=== PATIENT | male | born 1950 | race Caucasian/White ===

== ENCOUNTER 2022-02-11 10:38 | Outpatient (REF) | payer MEDICARE, SELFPAY ==
[2022-02-11 11:16] LABS: Hematocrit 47.6 % (42.0-52.0); Hemoglobin 15.5 g/dl (14.0-18.0); Mean Corpuscular HGB Conc 32.6 g/dl (31.0-36.0); Mean Corpuscular Hemoglobin 28.8 pg (27.0-33.0); Mean Corpuscular Volume 88.3 fL (80.0-98.0); Mean Platelet Volume 10.9 fL (9.4-12.4); Platelet Count 247 X10*3/uL (160-400); Red Blood Count 5.39 X10*6/uL (4.60-5.80); Red Cell Distribution Width 12.5 % (11.0-16.0); White Blood Count 6.2 X10*3/uL (4.8-10.8)
[2022-02-11 11:51] LABS: Appearance Urine CLEAR; Color Urine YELLOW; Glucose Urine UA NEG (NEG); Leukocyte Esterase Urine NEG (NEG); Nitrite Urine NEG (NEG); Specific Gravity - Urine 1.015 (1.005-1.025); Urine Blood NEG (NEG); Urine Ketones NEG (NEG); Urine Protein NEG (NEG-TRACE)
[2022-02-11 12:13] LABS: Thyroid Stimulating Hormone 0.88 uIU/mL (0.32-4.0)
[2022-02-11 12:22] LABS: Alanine Aminotransferase 21 U/L (0-40); Albumin Level 4.4 g/dL (3.5-5.0); Alkaline Phosphatase 64 U/L (39-117); Anion Gap 15 (12-20); Aspartate Amino Transferase 20 U/L (5-37); Bilirubin Direct 0.3 mg/dL (0.0-0.5); Blood Urea Nitrogen 20 mg/dL (9-16); C Reactive Protein 0.15 mg/dL (< or = 0.50); Carbon Dioxide 26 mmol/L (22-29); Chloride 103 mmol/L (96-108); Cholesterol 216 mg/dL; Estimated Glomerular Filt Rate > 60; Glucose Random 96 mg/dL (60-115); HDL Cholesterol 61 mg/dL; LDL Cholesterol Calculated 143 mg/dl; Potassium 4.3 mmol/L (3.3-5.1); Sodium 140 mmol/L (135-145); Total Protein 7.6 g/dL (6.5-8.0); Triglycerides 62 mg/dL
== END 2022-02-11 10:39 | disposition home or self-care (01) ==
LOC: HO.LAB 10:38
PROVIDERS: PCP Internal Medicine; Visit Provider Internal Medicine
DX: I10 Essential (primary) hypertension (principal)
CPT/HCPCS: 36415; 80048; 80061; 80076; 81003; 84443; 85027; 86140

== ENCOUNTER → 2022-03-11 09:12 | Outpatient (REF) | payer MEDICARE, SELFPAY ==
--- NOTE | 2022-03-11 09:18 | CA_ITS ---
Acquisition Time: 2022-03-11 09:26:07 Total Exercise Time: 00:07:16 Test Indications: Chest Pain Medications: LOSARTAN Protocol: NICKIE Max HR: 153 BPM 102% of Pred: 150 BPM Max BP: 180/090 mmHG Max Work Load: 8.9 METS Exercise stress using Nickie protocol, total of 7 min 16 sec. Pt tolerated well, Mild shortness of breath without chest pain. METS 8.9, MAPHR Up to 102%. No ischemic changes seen during exercise or in recovery period. Hypertensive response to exercise. Test reviewed with Dr. Newton. Referred By: Rose Arnett Overread By: Amanda Ledezma NP
== END ==
LOC: HO.CARD 09:12
PROVIDERS: PCP Nurse Practitioner Family; Visit Provider Nurse Practitioner Family
DX: R07.9 Chest pain, unspecified (principal); I10 Essential (primary) hypertension
CPT/HCPCS: 93017

== ENCOUNTER 2023-03-15 14:19 | Outpatient (REF) | payer MEDICARE, SELFPAY ==
[2023-03-15 15:39] LABS: Hematocrit 46.9 % (42.0-52.0); Hemoglobin 15.5 g/dl (14.0-18.0); Mean Corpuscular Hemoglobin 29.1 pg (27.0-33.0); Mean Corpuscular Volume 88.2 fL (80.0-98.0); Mean Platelet Volume 11.2 fL (9.4-12.4); Platelet Count 253 X10*3/uL (160-400); Red Blood Count 5.32 X10*6/uL (4.60-5.80)
[2023-03-15 16:25] LABS: Alanine Aminotransferase 19 U/L (0-40); Albumin Level 4.3 g/dL (3.5-5.0); Alkaline Phosphatase 72 U/L (39-117); Anion Gap 13 (12-20); Aspartate Amino Transferase 22 U/L (5-37); Bilirubin Direct 0.2 mg/dL (0.0-0.5); Bilirubin Total 0.7 mg/dL (0.0-1.0); Blood Urea Nitrogen 22 mg/dL (9-16); Calcium 9.4 mg/dL (8.4-10.2); Carbon Dioxide 27 mmol/L (22-29); Chloride 104 mmol/L (96-108); Estimated Glomerular Filt Rate > 60; Glucose Random 103 mg/dL (60-115); Potassium 4.7 mmol/L (3.3-5.1); Sodium 139 mmol/L (135-145); Total Protein 7.1 g/dL (6.5-8.0)
[2023-03-15 16:40] LABS: Prostate Specific Antigen Scr 5.77 ng/mL (<0.05-4.0)
[2023-03-15 19:25] LABS: Creatinine Urine 66.86 mg/dL; Microalbumin Urine < 5.0 mg/L
== END 2023-03-15 14:20 | disposition home or self-care (01) ==
LOC: HO.LAB 14:19
PROVIDERS: PCP Physician Assistant; Visit Provider Physician Assistant
DX: Z12.11 Encounter for screening for malignant neoplasm of colon (principal); Z12.5 Encounter for screening for malignant neoplasm of prostate; I10 Essential (primary) hypertension
CPT/HCPCS: 36415; 80048; 80076; 82043; 84153; 85027

== ENCOUNTER 2023-09-27 10:46 | Outpatient (AMB) | payer MEDICARE, SELFPAY ==
[2023-09-27 10:49] VITALS: BP 122/78; PULSE 71; O2SAT 97; BMI 25.5
--- NOTE | 2023-09-27 10:49 | MHC.PC.OV ---
Vital Signs 09/27/23 10:49 Height 5 ft 7 in Weight 163 lb BMI 25.5 BP 122/78 Blood Pressure Location Lt brachial Position Sitting Pulse 71 Pulse Source Pulse Oximeter Pulse Oximetry (%) 97 Oxygen Delivery Method Room Air Intake Visit Reasons: Annual Exam Intake Note: Patient is here today for a physical. 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 Accompanied by: Self / Same As Patient Allergies amoxicillin [AMOXICILLIN] Allergy (Severe, Verified 09/27/23 11:21) RASH zoster vaccine live [SHINGLES VACCINE] Allergy (Severe, Verified 09/27/23 11:21) SWELLING AND PAIN metoprolol Adverse Reaction (Severe, Verified 09/27/23 11:21) Nausea PEG 3350-KCl-Na Bicarb-NaCl Allergy (Unknown, Uncoded 09/27/23 11:08) Unknown pollen Allergy (Unknown, Uncoded 09/27/23 11:08) Itchy Eyes Medication List - Last Reconciled 09/27/23 by Ramiro Ellis PA-C losartan 50 mg PO DAILY Tobacco use date assessed: 03/21/23 Fall risk assessment: No Falls in past year Last assessed Fall Risk: 09/27/23 Dental Screening Dental Screen Date: 09/27/23 Did you have a dental visit in the last 12 months?: Yes Did you have a dental problem in the last 6 months where you did not have access to dental care?: No Was dental information given to patient?: Patient has dentist HPI Annual Exam HPI Details Patient is a 73 year male here today for routine annual physical. Patient has a past medical history significant for essential hypertension and elevated PSA. Concern--> continues to have elevated PSA. Does have a brother with prostate cancer. Does report some nocturia and weak urinary stream at times. Not interested in starting medication at this time or seeing a urologist PLAN: Will recheck PSA in 6 months and continues to be elevated will consider urology evaluation .. Hypertension: blood pressure stable today in office. Patient continues on losartan with good effect on his blood pressure. Vaccines: Up-to-date with COVID vaccine, pneumonia vaccine, shingles vaccine, needs flu vaccine Colon cancer screening: Cologuard negative in November 2022, repeat 3 years Laboratory Tests 03/15/23 03/15/23 03/15/23 14:31 14:31 15:40 RBC 5.32 Hgb 15.5 Creatinine 1.05 PSA Screen 5.77 H Urine Microalbumin < 5.0 PFSH Medical History Essential hypertension Surgical History History of knee surgery History of hemorrhoidectomy Family History Father Prostate cancer Social History (Updated 09/27/23 @ 11:27 by Ramiro Ellis PA-C) Housing: House Alcohol intake: current Alcohol intake frequency: holidays/special occasions only Patient Tobacco Use Status: Never used Tobacco e-Cigarette/Vaping Use: Never Used Second Hand Smoke Exposure: No service: No Current occupational status: retired Cognitive needs: No Hearing needs: No Vision needs: Yes (Glasses) Questionnaire Thrive Questionnaire Date Thrive assessed: 03/21/23 AMBERLY-7 AMB Questionnaire AMBERLY-7 Date AMBERLY - 7 assessed: 03/21/23 Source: Developed by Drs. Bryce Burton, Lynette Dietz, Darshan Porter and colleagues, with an educational sandee from [employer]. Review of Systems Const Denies body aches, Denies chills, Denies excessive sweating, Denies fatigue, Denies fever(s) and Denies headache(s) Eyes Denies blurry vision ENT Denies dysphagia, Denies vertigo, Denies dizziness, Denies headache(s), Denies hearing loss and Denies tinnitus Card Denies chest pain, Denies chest pain with activity, Denies syncope, Denies irregular heart rhythm and Denies dyspnea Resp Denies chest congestion, Denies cough, Denies hemoptysis, Denies dyspnea and Denies wheezing GI Denies abdominal pain, Denies melena, Denies hematochezia, Denies coffee ground emesis, Denies dysphagia, Denies diarrhea, Denies nausea and Denies vomiting Denies difficulty urinating, Denies dysuria, Denies urinary frequency, Denies urinary hesitancy and Denies urinary urgency Musc Denies arthralgias, Denies limited range of motion, Denies muscle cramps and Denies muscle weakness Skin/Breast Denies rash and Denies skin ulcer Neuro Denies Abnormal speech present, Denies confusion, Denies vertigo, Denies dizziness, Denies syncope, Denies headache(s), Denies memory loss and Denies seizure-like activity Psych Denies anxiety, Denies confusion, Denies depression, Denies memory loss, Denies panic attacks and Denies paranoia Endo Denies excessive sweating, Denies fatigue, Denies flushing, Denies polydipsia and Denies polyuria Aller/Immun Denies wheezing Physical exam (Primary Care) Vital Signs: Last Vital Signs Pulse 71 09/27/23 10:49 BP 122/78 09/27/23 10:49 Pulse Ox 97 09/27/23 10:49 Oxygen Delivery Method Room Air 09/27/23 10:49 BMI result Body Mass Index 25.5 Tobacco/Smoking Status: Tobacco use Status Tobacco use date assessed 03/21/23 09/27/23 10:51 Patient Tobacco Use Status Never used Tobacco 09/27/23 11:27 e-Cigarette/Vaping Use Never Used 09/27/23 11:27 Thrive Assessment: Date of Thrive Assessment Date Thrive assessed 03/21/23 09/27/23 10:51 Const General: cooperative, comfortable, no acute distress, alert and awake; No confusion Orientation/consciousness: oriented to person, oriented to place, patient oriented x3 and No confusion HENMT Head: Yes normocephalic Ears: external ears normal and TM's normal bilaterally Face and sinus: No sinus tenderness Mouth: Normal oral and palatal mucosa present and tongue normal Teeth and gingiva: dentition normal and gingiva normal Throat: Yes posterior oropharynx normal, Yes tonsils normal and Yes uvula midline Eyes Conjunctivae: conjunctivae normal Sclerae: sclerae normal Pupils: Equal, round and reactive pupils present EOM: EOMs intact bilaterally Direct Ophthalmoscopy: No no photophobia Neck Neck: Yes no lymphadenopathy, No tender and Yes no JVD Thyroid: Thyroid normal Carotids: no bruits Chest Chest palpation & inspection: no tenderness Resp Effort & Inspection: normal respiratory effort, no audible wheezes, not labored and no stridor Auscultation: no crackles, no rales, no rhonchi and no wheezes Cardio Jugular venous distension: no JVD Rate: regular rate, not bradycardic and not tachycardic Rhythm: regular rhythm Bruits: no carotid bruits Peripheral pulses: Peripheral pulses 2+ throughout GI Inspection: Yes normal to inspection, No abdominal wall ecchymosis and No visible herniation Palpation (GI): Soft to palpation, nontender, no guarding, not rigid and No hepatosplenomegaly present Auscultation: normoactive bowel sounds General: Yes no CVA tenderness Back/Spine/Pelvis Back: no CVA tenderness and No back tenderness Cervical Spine: cervical ROM normal Thoracic/Lumbar Spine: thoracic and lumbar spine normal to inspection, straight leg raise negative bilaterally, No thoraco-lumbar ROM limited and No lumbar spinal tenderness Skin Lesions: no lesions Rashes: no rashes Wounds: no wounds Neuro General: oriented to person, oriented to place, patient oriented x3, CN's II-XI intact bilaterally and No confusion Cranial nerves: Yes Equal, round and reactive pupils present and Yes Normal accommodation reflex present Cognition (Neuro): normal cognition Speech: No Abnormal speech present Gait exam (Neuro): Normal gait present Motor exam (neuro): 5/5 motor strength present throughout Extrem Right upper extremity: full ROM; no cyanosis Left upper extremity: full ROM; no cyanosis Right lower extremity: no edema Left lower extremity: no edema Psych Appearance: grossly normal Mental Status: mental status grossly normal Affect: normal affect Attitude: cooperative Thought process: Normal thought process present Assessment and Plan Assessment & Plan (1) Annual physical exam: Code(s): Z00.00 - Encounter for general adult medical examination without abnormal findings (2) Essential hypertension: Code(s): I10 - Essential (primary) hypertension Plan: Blood pressure acceptable today in office, will continue his current dose of losartan as his blood pressure has been stable. Has been more physically active as of late and has lost a few lb. Goal blood pressure be below 140/90 (3) Elevated PSA: Code(s): R97.20 - Elevated prostate specific antigen [PSA] Plan: Patient's most recent PSA of 5.7. He does report some weak urinary stream though no nocturia. He does report a father with prostate cancer whom in his 80s. At this time will continue surveillance and if PSA remains elevated will consider urology evaluation Orders: Orders Comprehensive [place]. Panel Fast 09/27/23 I10 - Essential (primary) hypertension Prostate Specific Antigen Scr 09/27/23 R97.20 - Elevated prostate specific antigen [PSA], Z12.5 - Encounter for screening for malignant neoplasm of prostate Complete Blood Count no Diff 09/27/23 I10 - Essential (primary) hypertension Lipid Panel 09/27/23 I10 - Essential (primary) hypertension Coding Level of Care Code Est Pt Prev Care >65y(20668) Diagnoses Annual physical exam Z00.00 Essential hypertension I10 Elevated PSA R97.20
== END 2023-09-27 11:51 | disposition home or self-care (01) ==
PROVIDERS: Visit Provider Physician Assistant
DX: Z00.00 Encounter for general adult medical examination without abnormal findings (principal); I10 Essential (primary) hypertension; R97.20 Elevated prostate specific antigen [PSA]
CPT/HCPCS: 99214; 99397

== ENCOUNTER 2024-03-20 09:16 | Outpatient (REF) | payer MEDICARE, SELFPAY ==
[2024-03-20 09:37] LABS: Hematocrit 43.8 % (42.0-52.0); Hemoglobin 14.9 g/dl (14.0-18.0); Mean Corpuscular Hemoglobin 30.3 pg (27.0-33.0); Mean Corpuscular Volume 89.2 fL (80.0-98.0); Mean Platelet Volume 10.8 fL (9.4-12.4); Platelet Count 217 X10*3/uL (160-400); Red Blood Count 4.91 X10*6/uL (4.60-5.80); Red Cell Distribution Width 12.7 % (11.0-16.0); White Blood Count 6.5 X10*3/uL (4.8-10.8)
[2024-03-20 10:10] LABS: Alanine Aminotransferase 16 U/L (0-40); Albumin Level 4.3 g/dL (3.5-5.0); Alkaline Phosphatase 61 U/L (39-117); Anion Gap 13 (12-20); Aspartate Amino Transferase 19 U/L (5-37); Bilirubin Total 0.7 mg/dL (0.0-1.0); Blood Urea Nitrogen 28 mg/dL (9-16); Calcium 9.6 mg/dL (8.4-10.2); Carbon Dioxide 27 mmol/L (22-29); Chloride 105 mmol/L (96-108); Cholesterol 192 mg/dL (<200); Estimated Glomerular Filt Rate > 60; Glucose Fasting 92 mg/dL (60-99); HDL Cholesterol 63 mg/dL (>40); LDL Cholesterol Calculated 120 mg/dL (<100); Potassium 4.7 mmol/L (3.3-5.1); Sodium 140 mmol/L (135-145); Total Protein 7.6 g/dL (6.5-8.0); Triglycerides 48 mg/dL (<150)
== END 2024-03-20 09:17 | disposition home or self-care (01) ==
LOC: HO.LAB 09:16
PROVIDERS: PCP Physician Assistant; Visit Provider Physician Assistant
DX: Z12.5 Encounter for screening for malignant neoplasm of prostate (principal); I10 Essential (primary) hypertension; R97.20 Elevated prostate specific antigen [PSA]
CPT/HCPCS: 36415; 80053; 80061; 84153; 85027

== ENCOUNTER 2024-03-27 14:00 | Outpatient (AMB) | payer MEDICARE, SELFPAY ==
[2024-03-27 14:05] VITALS: BP 132/84; PULSE 70; O2SAT 97; BMI 25.3
--- NOTE | 2024-03-27 14:05 | A.OFFPC_ITS ---
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 Accompanied by: Self / Same As Patient Allergies amoxicillin [AMOXICILLIN] Allergy (Severe, Verified 03/27/24 14:29) RASH zoster vaccine live [SHINGLES VACCINE] Allergy (Severe, Verified 03/27/24 14:29) SWELLING AND PAIN metoprolol Adverse Reaction (Severe, Verified 03/27/24 14:29) Nausea PEG 3350-KCl-Na Bicarb-NaCl Allergy (Unknown, Uncoded 03/27/24 14:08) Unknown pollen Allergy (Unknown, Uncoded 03/27/24 14:08) Itchy Eyes Medication List - Last Reconciled 03/27/24 by Ramiro Ellis PA-C losartan 50 mg PO DAILY Tobacco use date assessed: 03/27/24 Fall risk assessment: No Falls in past year Last assessed Fall Risk: 03/27/24 Dental Screening Dental Screen Date: 03/27/24 Did you have a dental visit in the last 12 months?: Yes Did you have a dental problem in the last 6 months where you did not have access to dental care?: No Was dental information given to patient?: Patient has dentist HPI 6 Month Follow Up HPI Details Patient is a 74 year male here today for routine annual physical. Patient has a past medical history significant for essential hypertension and elevated PSA. Did have an urgent care visit to where he hit his head on a dresser. He was asymptomatic and no imaging done. He unfortunately contracted COVID while in the ER and has recovered well from COVID. Concern--> continues to have elevated PSA. Does have a brother with prostate cancer. Does report some nocturia and weak urinary stream at times. He is now interested in urology referral and starting finasteride and tamsulosin for his urinary symptoms. .. Hypertension: blood pressure stable today in office. Patient continues on losartan with good effect on his blood pressure. [facility] Medical History Essential hypertension Surgical History History of knee surgery History of hemorrhoidectomy Family History Father Prostate cancer Social History Housing: House Alcohol intake: current Alcohol intake frequency: holidays/special occasions o nly Patient Tobacco Use Status: Never used Tobacco e-Cigarette/Vaping Use: Never Used Second Hand Smoke Exposure: No service: No Current occupational status: retired Cognitive needs: No Hearing needs: No Vision needs: Yes (Glasses) Questionnaire PHQ-9 Over the last 2 weeks, how often have you been bothered by any of the following problems? 1. Little interest or pleasure in doing things: not at all 2. Feeling down, depressed, or hopeless: not at all 3. Trouble falling or staying asleep, or sleeping too much: not at all 4. Feeling tired or having little energy: not at all 5. Poor appetite or overeating: not at all 6. Feeling bad about yourself - or that you are a failure or have let yourself or your family down: not at all 7. Trouble concentrating on things, such as reading the newspaper or watching television: not at all 8. Moving or speaking so slowly that other people could have noticed. Or the opposite - being so fidgety or restless that you have been moving around a lot more than usual: not at all 9. Thoughts that you would be better off or of hurting yourself in some way: not at all Total score: 0 Depression Screening Interpretation: Negative Depression Screening Done: Yes 97811 - PHQ-9 Billing: Yes Source: Developed by Drs. Bryce Burton, Lynette Dietz, Darshan Porter and colleagues, with an educational sandee from [employer] Thrive Questionnaire Date Thrive assessed: 03/27/24 I am a: Patient What is your living situation today?: I have a steady place to live Within the past 12 months, did the food you bought not last and you didn't have the money to get more?: Never true Within the past 12 months, did you worry whether your food would run out before you got money to buy more?: Never true Do you have trouble paying for medicines?: No Do you have trouble getting transportation to medical appointments?: No Do you have trouble paying your heating and electricity bill?: No Do you have trouble taking care of your child, family member or friend?: No Do you have trouble with day-to-day activities such as bathing, preparing meals, shopping, managing finances, etc.?: No Are you currently unemployed and looking for a job?: No Are you interested in more education?: No Please select the resources that you would like help with: None Currently or been in a relationship where the following occur: no concerns reported THRIVE Score: 0 AUDIT C Alcohol Use Questionnaire (AUDIT-C) 1. How often do you have a drink containing alcohol?: Monthly or less 2. How many drinks containing alcohol do you have on a typical day when you are drinking?: 1 or 2 3. How often do you have six or more drinks on one occasion?: Never Total Score: 1 AMBERLY-7 AMB Questionnaire AMBERLY-7 Date AMBERLY - 7 assessed: 03/27/24 Feeling nervous, anxious, or on edge: 0 = Not at all Not being able to stop or control worryin = Not at all Worrying too much about different things: 0 = Not at all Trouble relaxin = Not at all Being so restless that it is hard to sit still: 0 = Not at all Becoming easily annoyed or irritable: 0 = Not at all Feeling afraid as if something awful might happen: 0 = Not at all Total AMBERLY-7 score (0-4 normal; 5-9 mild; 10-14 moderate; 15-21 severe): 0 Source: Developed by Drs. Bryce Burton, Lynette Dietz, Darshan Porter and colleagues, with an educational sandee from [employer] AMBERLY-7 Assessment Billing AMBERLY-7 Assessment Tool: AMBERLY-7 Assessment [id number] Review of Systems Const Denies headache(s) Eyes Denies loss of vision ENT Denies vertigo, Denies dizziness, Denies headache(s) and Denies sore throat Card Denies chest pain, Denies leg edema and Denies lightheadedness Resp Denies cough, Denies hemoptysis and Denies wheezing GI Denies abdominal pain, Denies melena, Denies constipation, Denies diarrhea and Denies vomiting Denies dysuria, Reports urinary frequency and Denies urinary urgency Musc Denies arthralgias, Denies joint swelling, Denies numbness and Denies tingling Neuro Denies Abnormal speech present, Denies behavioral changes, Denies vertigo, Denies dizziness, Denies headache(s), Denies loss of vision, Denies memory loss, Denies numbness and Denies tingling Psych Denies anxiety, Denies behavioral changes, Denies depression, Denies memory loss and Denies panic attacks Vincenzo/Lymph Denies easy bleeding and Denies easy bruising Aller/Immun Denies wheezing Physical exam (Primary Care) Vital Signs: Last Vital Signs Pulse 70 03/27/24 14:05 BP 132/84 03/27/24 14:05 Pulse Ox 97 03/27/24 14:05 Oxygen Delivery Method Room Air 03/27/24 14:05 BMI result Body Mass Index 25.3 Tobacco/Smoking Status: Tobacco use Status Tobacco use date assessed 03/27/24 03/27/24 14:10 Patient Tobacco Use Status Never used Tobacco 03/27/24 14:10 e-Cigarette/Vaping Use Never Used 03/27/24 14:10 PHQ-9: PHQ-9 Score PHQ-9: Total score 0 03/27/24 14:10 Depression Screening Interpretation: Negative Thrive Assessment: Date of Thrive Assessment Date Thrive assessed 03/27/24 03/27/24 14:10 Currently or been in a relationship where the following occur: no concerns reported Const General: healthy appearing, no acute distress, alert and awake Nutritional Appearance: well nourished Orientation/consciousness: oriented to person, oriented to place and oriented to time HENMT Ears: TM's normal bilaterally General nose exam: Normal nasal mucous membranes and turbinates present Eyes Conjunctivae: conjunctivae normal Sclerae: sclerae normal Pupils: Equal, round and reactive pupils present Neck Neck: Yes no lymphadenopathy and Yes no JVD Thyroid: Thyroid normal Carotids: no bruits Resp Effort & Inspection: normal respiratory effort and not tachypneic Auscultation: no crackles, no rales, no rhonchi and no wheezes Cardio Rate: regular rate Rhythm: regular rhythm Heart sounds: no murmurs and normal S1 and S2 GI Palpation (GI): Soft to palpation, nontender, no hepatomegaly and no splenomegaly Auscultation: normal bowel sounds Skin General skin exam: no rashes or lesions noted and dry skin Neuro General: oriented to person, oriented to place and oriented to time Cranial nerves: Yes Equal, round and reactive pupils present Speech: No Abnormal speech present Gait exam (Neuro): Normal gait present Motor exam (neuro): no tremor noted Extrem Right upper extremity: full ROM Left upper extremity: full ROM Right lower extremity: full ROM; no edema Left lower extremity: full ROM; no edema Psych Mental Status: mental status grossly normal Speech and movement: Normal speech and movement present Affect: normal affect Attitude: cooperative Thought process: Normal thought process present Assessment and Plan Assessment & Plan (1) Essential hypertension: Code(s): I10 - Essential (primary) hypertension Plan: Blood pressure acceptable today in office, will continue his current dose of losartan as his blood pressure has been stable. Has been more physically active as of late and has lost a few lb. Goal blood pressure be below 140/90 (2) Elevated PSA: Code(s): R97.20 - Elevated prostate specific antigen [PSA] Plan: Patient's most recent PSA of 9.1. He does report some weak urinary stream though no nocturia. He does report a father with prostate cancer whom in his 80s. He is interested in seeing urologist for possible biopsy Will start finasteride and tamsulosin for his urinary symptoms and reducing size of prostate. We did discuss the potential side effects both tamsulosin and finasteride and patient willing to take the risk. Orders: Orders Comprehensive [place]. Panel Fast Today I10 - Essential (primary) hypertension Complete Blood Count no Diff Today I10 - Essential (primary) hypertension Microalbumin, Random (w Creat) Today I10 - Essential (primary) hypertension Medications: New tamsulosin 0.4 mg PO DAILY 90 days 90 caps 1RF R97.20 - Elevated prostate specific antigen [PSA] finasteride 5 mg PO DAILY 90 tabs 1RF R97.20 - Elevated prostate specific antigen [PSA] Coding Level of Care Code Est Pt Level 4 (29038) Diagnoses Essential hypertension I10 Elevated PSA R97.20 Additional Codes AMBERLY-7 Assessment Billing - AMBERLY-7 Assessment Tool: AMBERLY-7 Assessment [id number] ([id number])
== END 2024-03-27 15:08 | disposition home or self-care (01) ==
PROVIDERS: PCP Physician Assistant; Visit Provider Physician Assistant
DX: I10 Essential (primary) hypertension (principal); R97.20 Elevated prostate specific antigen [PSA]
CPT/HCPCS: 99214

== ENCOUNTER 2024-04-18 11:29 | Outpatient (AMB) | payer MEDICARE, SELFPAY ==
--- NOTE | 2024-04-18 11:34 | MHC.OFFVIS ---
Intake Visit Reasons: Elevated prostate specific antigen [PSA] Intake Note: New Patient presents today for initial visit to establish treatment for : Elevated PSA Urology Medications: Tamsulosin Allergies to Antibiotic: Amoxicillin Blood Thinner: None Regional Rehabilitation Director Required: No Accompanied by: Self / Same As Patient Allergies amoxicillin [AMOXICILLIN] Allergy (Severe, Verified 04/18/24 13:59) RASH zoster vaccine live [SHINGLES VACCINE] Allergy (Severe, Verified 04/18/24 13:59) SWELLING AND PAIN metoprolol Adverse Reaction (Severe, Verified 04/18/24 13:59) Nausea finasteride Adverse Reaction (Verified 04/18/24 13:59) Nausea PEG 3350-KCl-Na Bicarb-NaCl Allergy (Unknown, Uncoded 04/18/24 13:59) Unknown pollen Allergy (Unknown, Uncoded 04/18/24 13:59) Itchy Eyes Medication List - Last Reconciled 04/18/24 by ELHAM Ascencio-LASHELL losartan 50 mg PO DAILY tamsulosin 0.4 mg PO DAILY 90 days HPI Comments Details: Oren is a very pleasant 74-year-old male patient of Dr. Ellis. He has a PMH of hypertension and hemorrhoids. He presents to the office today as a new patient for an elevated PSA. In discussion with the patient today he reports having followed up with his PCP at which time annual labs were drawn and patient was noted to have an increase in his PSA. In review of patient's chart PSAs are as follows... PSAs: 12/09 3.0, 03/13 5.8, 03/14 9.1 He reports having noted weak urinary stream however was started on Flomax with PCP and has noted significant improvement in his urinary stream. He otherwise denies urinary urgency, urinary frequency, incontinence, nocturia, hematuria, dysuria, foul smelling urine, flank pain, fever, and or chills. In office urinalysis results reviewed with the patient today. LORENZO performed smooth and no suspicious nodules palpated however right side of prostate more firm when compared to the left. Discussed at length potential causes for elevated PSA. He discusses at length losing his approximately 11 years ago to ovarian cancer. Discussed obtaining redraw of PSA and retroperitoneal ultrasound for further assessment evaluation. Will also tentatively schedule for prostate biopsy per patient request as he feels he has already been waiting for todays appointment. He denies any known family history of prostate cancer. He otherwise offers no other issues or concerns. [facility] Medical History Essential hypertension Surgical History History of knee surgery History of hemorrhoidectomy Family History Father Prostate cancer Social History Housing: House Alcohol intake: current Alcohol intake frequency: holidays/special occasions only Patient Tobacco Use Status: Never used Tobacco e-Cigarette/Vaping Use: Never Used Second Hand Smoke Exposure: No service: No Current occupational status: retired Cognitive needs: No Hearing needs: No Vision needs: Yes (Glasses) Review of Systems Const All systems reviewed & are unremarkable except as noted in HPI and below Physical Exam Const General: cooperative, healthy appearing, comfortable, no acute distress, well developed, alert and awake Orientation/consciousness: patient oriented x3 Limitations: no limitations HEENT Head: Yes normal to inspection, Yes normocephalic and Yes atraumatic Ears: hearing grossly normal bilaterally Eyes General: appearance normal, both eyes and all related structures Neck Neck: Yes normal visual inspection and Yes trachea midline Chest Chest palpation & inspection: normal inspection of the chest Resp Effort & Inspection: normal respiratory effort and able to speak in complete sentences Cardio Rate: regular rate GI Inspection: Yes normal to inspection General: Yes no CVA tenderness Back/Spine/Pelvis Back: no CVA tenderness Skin General skin exam: no rashes or lesions noted Neuro General: patient oriented x3 Extrem General: Yes normal to inspection Psych Appearance: grossly normal and well kempt Mental Status: mental status grossly normal Speech and movement: Normal speech and movement present and Clear speech present Affect: normal affect Attitude: cooperative Thought process: Normal thought process present Thought content: Normal thought content present Insight: Fair insight present (Psych) Judgement: Fair judgement present (Psych) Results AMB Urinalysis, Automated UA Leukoctes 0 Leora/uL Last Edit by Joel Michelle on 04/18/24 11:56 UA Nitrite Negative Last Edit by Joel Mcihelle on 04/18/24 11:56 UA Urobilinogen 0.2 mg/dL Last Edit by Joel Michelle on 04/18/24 11:56 UA Protein 0 mg/dL Last Edit by Joel Michelle on 04/18/24 11:56 UA pH 6.0 Last Edit by Joel Michelle on 04/18/24 11:56 UA Blood 0 Colby/uL Last Edit by Joel Michelle on 04/18/24 11:56 UA Specific [place] 1.005 Last Edit by Joel Michelle on 04/18/24 11:56 UA Ketone Negative Last Edit by Joel Michelle on 04/18/24 11:56 UA Bilirubin 0 mg/dL Last Edit by Joel Michelle on 04/18/24 11:56 UA Glucose 0 mg/dL Last Edit by Joel Michelle on 04/18/24 11:56 Results Reviewed Results Reviewed: Laboratory Last Values Urine pH (Auto) 6.0 04/18/24 11:50 Specific [place] (Auto) 1.005 04/18/24 11:50 Urine Protein (Auto) 0 mg/dL 04/18/24 11:50 Glucose (UA)(Auto) 0 mg/dL 04/18/24 11:50 Urine Ketones (Auto) Negative 04/18/24 11:50 Urine Blood (Auto) 0 Colby/uL 04/18/24 11:50 Urine Nitrite (Auto) Negative 04/18/24 11:50 Urine Bilirubin (Auto) 0 mg/dL 04/18/24 11:50 Urine Urobilinogen (Auto) 0.2 mg/dL 04/18/24 11:50 Leukocyte Esterase (Auto) 0 Leora/uL 04/18/24 11:50 Assessment & Plan Assessment & Plan (1) Elevated PSA: Code(s): R97.20 - Elevated prostate specific antigen [PSA] Category: Medical (2) Weak urinary stream: Code(s): R39.12 - Poor urinary stream Category: Medical Plan: Plan Risks and benefits regarding trans rectal ultrasound with prostate biopsy were discussed.? Options of continued surveillance, no treatment and biopsy were offered. The risks include but are not limited to, urinary tract infection, sepsis, difficulty urinating, bleeding into the rectum or bladder that requires intervention and transfusion,and failure to diagnose prostate cancer. The patient understands the options and the risks involved. They wish to proceed. Printed information was provided to ensure he remains off anticoagulation for the appropriate length of time. He may require cardiology or PCP clearance.? An antibiotic will be administered prior to, and following the procedure Plan In office urinalysis results reviewed with the patient today. Continue Flomax as patient reports be happy with current voiding parameters. Patient currently denies any bothersome urinary issues or concerns. Discussed at length potential causes of elevated PSA Discussed risks and benefits of further treatment options to include further workup and or prostate biopsy. Will obtain redraw of PSA with no sex the night before, no caffeine morning of, no heavy lifting 1-2 days prior. Will obtain retroperitoneal ultrasound for further assessment evaluation. Prescription provided for antibiotic therapy; discussed specific instructions of taking antibiotic day before, day of, and day after procedure. Will tentatively schedule for prostate procedure. Follow-up in 1 month with imaging and labs to be completed prior; or sooner with any issues, concerns, and or questions. Orders: Orders AMB Urinalysis Automated Today Z13.9 - Encounter for screening, unspecified PSA,Total (Free>4and<10) Today R97.20 - Elevated prostate specific antigen [PSA] US retroperitoneal comp Today R39.12 - Poor urinary stream Medications: New levofloxacin take 1 tablet day before procedure, 1 tablet day of procedure and 1 tablet day after procedure 500 mg PO daily 3 days 3 tabs 0RF Patient Instructions: The patient had an opportunity to ask questions regarding the treatment plan. All questions were answered. Physical exam, labs, and imaging were discussed and reviewed in detail. As well as risks, benefits, and discussion of treatment choices. No major barriers to understanding were identified. The patient expressed understanding and agreement with the above treatment plan. The patient was made aware they should contact our office by phone for worsening of their current condition, the appearance of new symptoms, or with any questions or concerns. Compliance is encouraged with any medications and follow up testing that is ordered. It is a privilege to be allowed the opportunity to participate in? your urological care.? Again, if you have any questions or concerns If you have any questions or concerns please do not hesitate to contact me. The office is [phone]. This note is constructed using voice recognition software. While every effort has been made to ensure accuracy equipment tech errors may have been included. Yours sincerely, Amrita Mir, CERTIFIED [employer] TECHNICIAN-BC Coding Level of Care Code New Pt Level 4 (20134) Diagnoses Elevated PSA R97.20 Weak urinary stream R39.12
== END 2024-04-18 12:34 | disposition home or self-care (01) ==
PROVIDERS: PCP Physician Assistant; Visit Provider Nurse Practitioner Family
DX: R97.20 Elevated prostate specific antigen [PSA] (principal); R39.12 Poor urinary stream; Z13.9 Encounter for screening, unspecified
CPT/HCPCS: 99204

== ENCOUNTER → 2024-04-18 11:29 | Outpatient (BNVA) | payer MEDICARE, SELFPAY | PROVIDERS: PCP Physician Assistant; Visit Provider Nurse Practitioner Family | DX: R97.20 Elevated prostate specific antigen [PSA] (principal); R39.12 Poor urinary stream | CPT/HCPCS: 81003; 99202 ==

== ENCOUNTER 2024-04-19 08:00 | Outpatient (REF) | payer MEDICARE, SELFPAY ==
--- NOTE | ~2024-04-19 | US_ITS ---
EXAMINATION: US RETROPERITONEAL COMPLETE (RENAL) CLINICAL INFORMATION: Poor urinary stream. COMPARISON: None available. TECHNIQUE: Real-time imaging of the kidneys and bladder. FINDINGS: RIGHT KIDNEY: 10.1 x 5.5 x 5.0 cm (SAG x AP x TRV). The kidney is normal in size, contour, and echogenicity. Renal cortical thickness is normal. No calculi or focal parenchymal lesions. No hydronephrosis. LEFT KIDNEY: 11.0 x 5.7 x 4.3 cm (SAG x AP x TRV). The kidney is normal in size, contour, and echogenicity. Renal cortical thickness is normal. No calculi. No hydronephrosis. Simple 0.7 x 0.5 x 0.6 cm exophytic cyst is seen extending off the mid to lower pole, no imaging follow-up is recommended. BLADDER: Well distended and normal. Bilateral ureteral jets are demonstrated. Prevoid bladder volume is 367 mL. Postvoid bladder volume is 272 mL. The prostate is markedly enlarged with a volume of 133 mL. This impinges on the bladder base. Incidental note is made of a 4.0 x 2.4 x 3.7 cm echogenic lesion in the right lobe of the liver. This most likely represents an hemangioma. US/US retroperitoneal comp IMPRESSION: 1. Normal appearance of the right kidney. 2. Simple 0.7 cm exophytic cyst extending off the mid to lower pole of the left kidney, no imaging follow-up is recommended. 3. Large post void residual. 4. Markedly enlarged prostate. 5. 4.0 cm echogenic lesion in the right lobe of the liver. This most likely represents an hemangioma. MRI scan could be obtained for further evaluation.
[2024-04-19 09:38] LABS: PSA,Total (Free>4and<10) 7.99 ng/mL (0.00-4.00)
[2024-04-21 11:32] LABS: Free Prostate Spec Ag 2.2 ng/mL; Percent Free Prostate Spec Ag 33 % (calc) (>25); Prostate Specific Ag Total 6.7 ng/mL (< OR = 4.0)
== END 2024-04-19 08:01 | disposition home or self-care (01) ==
LOC: HO.US 08:00
PROVIDERS: PCP Physician Assistant; Visit Provider Nurse Practitioner Family
DX: R97.20 Elevated prostate specific antigen [PSA] (principal); R39.12 Poor urinary stream; Z12.5 Encounter for screening for malignant neoplasm of prostate
CPT/HCPCS: 36415; 76770; 84153; 84154

== ENCOUNTER 2024-05-17 13:24 | Outpatient (AMB) | payer MEDICARE, SELFPAY ==
--- NOTE | 2024-05-17 13:22 | MHC.OFFVIS ---
Intake Visit Reasons: 1m/US/PSA(set) Intake Note: Patient is present for 1month f/u US/PSA Imagin04/19/24 PSA: 6.7 Urology Medication: tamulosin Antibiotic Allergy: amoxicillin Blood Thinner: none Loan And Credit Manager Required: No Accompanied by: Self / Same As Patient Allergies amoxicillin [AMOXICILLIN] Allergy (Severe, Verified 05/17/24 17:42) RASH zoster vaccine live [SHINGLES VACCINE] Allergy (Severe, Verified 05/17/24 17:42) SWELLING AND PAIN metoprolol Adverse Reaction (Severe, Verified 05/17/24 17:42) Nausea PEG 3350-KCl-Na Bicarb-NaCl Allergy (Unknown, Uncoded 05/17/24 17:42) Unknown pollen Allergy (Unknown, Uncoded 05/17/24 17:42) Itchy Eyes Medication List - Last Reconciled 05/17/24 by ELHAM Ascenico- finasteride 5 mg PO DAILY 90 days losartan 50 mg PO DAILY tamsulosin 0.4 mg PO DAILY 90 days HPI Comments Details: Oren is a very pleasant 74-year-old male patient of Dr. Ellis. He has a PMH of hypertension and hemorrhoids. He is being followed up on today via telehealth for his elevated PSA. In discussion with the patient today he reports to be doing and feeling well. Recent PSA and retroperitoneal ultrasound results reviewed with the patient today. Bilateral kidneys with no hydronephrosis or renal calculi. Simple 0.7 cm exophytic cyst is seen on the left kidney that requires no imaging follow-up per radiology report. The bladder is well distended and normal. Bladder ureteral jets are demonstrated. Pre void bladder volume is approximately 360 mL. Postvoid bladder volume is approximately 270 mL. The prostate is markedly enlarged with a volume of 135 mL. This impinges on the bladder base. PSAs are as follows: PSAs: 12/09 3.0, 03/13 5.8, 03/14 9.1, 04/13 6.7 % free PSA 33%. PCPT risk calculator results reviewed with the patient today. 84% chance that prostate biopsy is negative for cancer, 10% chance of low-grade prostate cancer, and 6% chance of high-grade prostate cancer. Discussed further treatment options to include MRI of the prostate versus prostate biopsy versus surveillance monitoring. Risks and benefits of these interventions were discussed at length. He reports to be happy with current voiding parameters on 0.4 mg of Flomax daily. He reports previously having initiated finasteride therapy with PCP however felt this made him nauseous and therefore this was discontinued. He reports feeling this could likely be related to his history of COVID as he also was diagnosed with COVID around the same time of initiation of finasteride. He otherwise denies urinary urgency, urinary frequency, incontinence, nocturia, hematuria, dysuria, foul smelling urine, flank pain, fever, and or chills. Discussed at length potential causes for elevated PSA. He discusses at length losing his approximately 11 years ago to ovarian cancer. He denies any known family history of prostate cancer. He otherwise offers no other issues or concerns. [facility] Medical History Essential hypertension Surgical History History of knee surgery History of hemorrhoidectomy Family History Father Prostate cancer Social History Housing: House Alcohol intake: current Alcohol intake frequency: holidays/special occasions only Patient Tobacco Use Status: Never used Tobacco e-Cigarette/Vaping Use: Never Used Second Hand Smoke Exposure: No service: No Current occupational status: retired Cognitive needs: No Hearing needs: No Vision needs: Yes (Glasses) Review of Systems Const All systems reviewed & are unremarkable except as noted in HPI and below Physical Exam Const General: cooperative Resp Effort & Inspection: able to speak in complete sentences Psych Speech and movement: Clear speech present Attitude: cooperative Thought process: Normal thought process present Thought content: Normal thought content present Insight: Fair insight present (Psych) Judgement: Fair judgement present (Psych) Telehealth Telehealth Telehealth Platform: [facility] Location of provider rendering services: practice address Location of patient: address on file Patient Identification confirmed using: Name, : Yes Telehealth method: voice only Patient verbally consented to treatment: Yes Patient verbally consented to billing insurance company: Yes Patient informed of any privacy concerns related to visit: Yes Minutes spent on Phone/Video with Pt.: 22 Results Reviewed Results Reviewed: Date of Service: 04/19/24 EXAMINATION: US RETROPERITONEAL COMPLETE (RENAL) FINDINGS: RIGHT KIDNEY: 10.1 x 5.5 x 5.0 cm (SAG x AP x TRV). The kidney is normal in size, contour, and echogenicity. Renal cortical thickness is normal. No calculi or focal parenchymal lesions. No hydronephrosis. LEFT KIDNEY: 11.0 x 5.7 x 4.3 cm (SAG x AP x TRV). The kidney is normal in size, contour, and echogenicity. Renal cortical thickness is normal. No calculi. No hydronephrosis. Simple 0.7 x 0.5 x 0.6 cm exophytic cyst is seen extending off the mid to lower pole, no imaging follow-up is recommended. BLADDER: Well distended and normal. Bilateral ureteral jets are demonstrated. Prevoid bladder volume is 367 mL. Postvoid bladder volume is 272 mL. The prostate is markedly enlarged with a volume of 133 mL. This impinges on the bladder base. Incidental note is made of a 4.0 x 2.4 x 3.7 cm echogenic lesion in the right lobe of the liver. This most likely represents an hemangioma. IMPRESSION: 1. Normal appearance of the right kidney. 2. Simple 0.7 cm exophytic cyst extending off the mid to lower pole of the left kidney, no imaging follow-up is recommended. 3. Large post void residual. 4. Markedly enlarged prostate. 5. 4.0 cm echogenic lesion in the right lobe of the liver. This most likely represents an hemangioma. MRI scan could be obtained for further evaluation. Assessment & Plan Assessment & Plan (1) Weak urinary stream: Code(s): R39.12 - Poor urinary stream Category: Medical (2) Elevated PSA: Code(s): R97.20 - Elevated prostate specific antigen [PSA] Category: Medical (3) Enlarged prostate: Code(s): N40.0 - Benign prostatic hyperplasia without lower urinary tract symptoms Category: Medical (4) Renal cyst: Code(s): N28.1 - Cyst of kidney, acquired Category: Medical (5) Incomplete bladder emptying: Code(s): R33.9 - Retention of urine, unspecified Category: Medical Plan Recent PSA results reviewed with the patient today; as noted above. Recent retroperitoneal ultrasound results reviewed with the patient today; as noted above. PCP T risk calculator results reviewed with the patient today; as noted above. Discussed at length potential causes of elevated PSA. Discussed further treatment options to include MRI of the prostate, prostate biopsy, and or surveillance monitoring; risks and benefits of these interventions were discussed. Start finasteride as discussed and prescribed. Continue Flomax as prescribed. Patient currently denies any bothersome urinary issues. Patient reports be happy with current voiding parameters on 0.4 mg of Flomax daily. Discussed potential near future in office cystoscopy for further assessment evaluation. Will obtain redraw of PSA in 4 months for surveillance monitoring. Follow-up in 4 months with lab to be completed prior; or sooner with any issues, concerns, and or questions. Orders: Orders PSA,Total (Free>4and<10) 4 Months R97.20 - Elevated prostate specific antigen [PSA] Medications: New finasteride 5 mg PO DAILY 90 days 90 tabs 1RF N32.0 - Bladder-neck obstruction Discontinued levofloxacin take 1 tablet day before procedure, 1 tablet day of procedure and 1 tablet day after procedure Discontinued Reason: Doctor's Order 500 mg PO daily 3 days 3 tabs 0RF Patient Instructions: The patient had an opportunity to ask questions regarding the treatment plan. All questions were answered. Physical exam, labs, and imaging were discussed and reviewed in detail. As well as risks, benefits, and discussion of treatment choices. No major barriers to understanding were identified. The patient expressed understanding and agreement with the above treatment plan. The patient was made aware they should contact our office by phone for worsening of their current condition, the appearance of new symptoms, or with any questions or concerns. Compliance is encouraged with any medications and follow up testing that is ordered. It is a privilege to be allowed the opportunity to participate in? your urological care.? Again, if you have any questions or concerns If you have any questions or concerns please do not hesitate to contact me. The office is [phone]. This note is constructed using voice recognition software. While every effort has been made to ensure accuracy wild animal caretaker errors may have been included. Yours sincerely, DANAE Ascencio Coding Level of Care Code Tele Est Pt Level 4 (21421) Diagnoses Weak urinary stream R39.12 Elevated PSA R97.20 Enlarged prostate N40.0 Renal cyst N28.1 Incomplete bladder emptying R33.9
== END 2024-05-17 14:11 | disposition home or self-care (01) ==
LOC: HO.HUSH 13:24
PROVIDERS: PCP Physician Assistant; Visit Provider Nurse Practitioner Family
DX: R39.12 Poor urinary stream (principal); R97.20 Elevated prostate specific antigen [PSA]; N40.0 Benign prostatic hyperplasia without lower urinary tract symptoms; N28.1 Cyst of kidney, acquired; R33.9 Retention of urine, unspecified
CPT/HCPCS: 99443

== ENCOUNTER → 2024-05-17 13:24 | Outpatient (BNVA) | payer MEDICARE, SELFPAY | PROVIDERS: PCP Physician Assistant; Visit Provider Nurse Practitioner Family ==

== ENCOUNTER 2024-09-03 09:05 | Outpatient (REF) | payer MEDICARE, SELFPAY ==
[2024-09-03 09:22] LABS: Hematocrit 43.2 % (42.0-52.0); Hemoglobin 14.3 g/dl (14.0-18.0); Mean Corpuscular HGB Conc 33.1 g/dl (31.0-36.0); Mean Corpuscular Hemoglobin 29.6 pg (27.0-33.0); Mean Corpuscular Volume 89.4 fL (80.0-98.0); Mean Platelet Volume 10.4 fL (9.4-12.4); Platelet Count 217 X10*3/uL (160-400); Red Blood Count 4.83 X10*6/uL (4.60-5.80); Red Cell Distribution Width 12.6 % (11.0-16.0)
[2024-09-03 10:04] LABS: Alanine Aminotransferase 16 U/L (0-40); Albumin Level 4.2 g/dL (3.5-5.0); Alkaline Phosphatase 58 U/L (39-117); Anion Gap 11 (12-20); Aspartate Amino Transferase 20 U/L (5-37); Bilirubin Total 0.8 mg/dL (0.0-1.0); Blood Urea Nitrogen 20 mg/dL (9-16); Calcium 9.3 mg/dL (8.4-10.2); Carbon Dioxide 29 mmol/L (22-29); Chloride 105 mmol/L (96-108); Cholesterol 181 mg/dL (<200); Estimated Glomerular Filt Rate > 60; Glucose Fasting 91 mg/dL (60-99); HDL Cholesterol 66 mg/dL (>40); LDL Cholesterol Calculated 104 mg/dL (<100); Potassium 4.2 mmol/L (3.3-5.1); Sodium 141 mmol/L (135-145); Total Protein 7.1 g/dL (6.5-8.0); Triglycerides 55 mg/dL (<150)
[2024-09-03 10:52] LABS: Creatinine Urine 138.47 mg/dL; Microalbum/Creatinine Ratio Ur 3.6 ug/mg cr (<30)
== END 2024-09-03 09:06 | disposition home or self-care (01) ==
LOC: HO.LAB 09:05
PROVIDERS: PCP Physician Assistant; Visit Provider Nurse Practitioner Family
DX: I10 Essential (primary) hypertension (principal)
CPT/HCPCS: 36415; 80053; 80061; 82043; 82570; 85027

== ENCOUNTER 2024-09-18 09:22 | Outpatient (REF) | payer MEDICARE, SELFPAY ==
[2024-09-18 11:20] LABS: PSA,Total (Free>4and<10) 3.79 ng/mL (0.00-4.00)
== END 2024-09-18 09:23 | disposition home or self-care (01) ==
LOC: HO.LAB 09:22
PROVIDERS: PCP Physician Assistant; Visit Provider Nurse Practitioner Family
DX: R97.20 Elevated prostate specific antigen [PSA] (principal); Z12.5 Encounter for screening for malignant neoplasm of prostate
CPT/HCPCS: 36415; 84153

== ENCOUNTER 2024-09-24 13:28 | Outpatient (AMB) | payer MEDICARE, SELFPAY ==
--- NOTE | 2024-09-24 13:34 | MHC.OFFVIS ---
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 Accompanied by: Self / Same As Patient Allergies amoxicillin [AMOXICILLIN] Allergy (Severe, Verified 09/24/24 15:52) RASH zoster vaccine live [SHINGLES VACCINE] Allergy (Severe, Verified 09/24/24 15:52) SWELLING AND PAIN metoprolol Adverse Reaction (Severe, Verified 09/24/24 15:52) Nausea PEG 3350-KCl-Na Bicarb-NaCl Allergy (Unknown, Uncoded 09/24/24 15:52) Unknown pollen Allergy (Unknown, Uncoded 09/24/24 15:52) Itchy Eyes Medication List - Last Reconciled 09/24/24 by ELHAM Ascencio- finasteride 5 mg PO DAILY 90 days losartan 50 mg PO DAILY tamsulosin 0.4 mg PO DAILY 90 days HPI Comments Details: Oren is a very pleasant 74-year-old male patient of Dr. Ellis. He has a PMH of hypertension and hemorrhoids. He presents to the office today for follow-up of his elevated PSA and lower urinary tract symptoms. In discussion with the patient today reports to be doing and feeling well. He reports compliance with finasteride and Flomax as prescribed. He currently denies any bothersome urinary issues or concerns. He reports be happy with current voiding parameters. Recent PSA results reviewed with the patient today as noted and trended below. Previous workup has included a retroperitoneal ultrasound 04/13 noting bilateral kidneys with no hydronephrosis or renal calculi. Simple 0.7 cm exophytic cyst is seen on the left kidney that requires no imaging follow-up per radiology report. The bladder is well distended and normal. Bladder ureteral jets are demonstrated. Pre void bladder volume is approximately 360 mL. Postvoid bladder volume is approximately 270 mL. The prostate is markedly enlarged with a volume of 135 mL. This impinges on the bladder base. PSAs are as follows: PSAs: 12/09 3.0, 03/13 5.8, 03/14 9.1, 04/13 6.7 % free PSA 33%., 09/13 3.8 We discussed decrease significant decrease in PSA. He otherwise denies urinary urgency, urinary frequency, incontinence, nocturia, hematuria, dysuria, foul smelling urine, flank pain, fever, and or chills. Discussed potential causes for/ of elevated PSA. He discusses at length losing his approximately 11 years ago to ovarian cancer. He denies any known family history of prostate cancer. In office urinalysis results reviewed with the patient today. PVR 34 mL. He otherwise offers no other issues or concerns. [facility] Medical History Essential hypertension Surgical History History of knee surgery History of hemorrhoidectomy Family History Father Prostate cancer Social History Housing: House Alcohol intake: current Alcohol intake frequency: holidays/special occasions only Patient Tobacco Use Status: Never used Tobacco e-Cigarette/Vaping Use: Never Used Second Hand Smoke Exposure: No service: No Current occupational status: retired Cognitive needs: No Hearing needs: No Vision needs: Yes (Glasses) Review of Systems Const All systems reviewed & are unremarkable except as noted in HPI and below Physical Exam Const General: cooperative, healthy appearing, comfortable, no acute distress, well developed, alert and awake Orientation/consciousness: patient oriented x3 Limitations: no limitations HEENT Head: Yes normal to inspection, Yes normocephalic and Yes atraumatic Ears: hearing grossly normal bilaterally Eyes General: appearance normal, both eyes and all related structures Neck Neck: Yes normal visual inspection and Yes trachea midline Chest Chest palpation & inspection: normal inspection of the chest Resp Effort & Inspection: normal respiratory effort and able to speak in complete sentences Cardio Rate: regular rate GI Inspection: Yes normal to inspection General: Yes no CVA tenderness Back/Spine/Pelvis Back: no CVA tenderness Skin General skin exam: no rashes or lesions noted Neuro General: patient oriented x3 Extrem General: Yes normal to inspection Psych Appearance: grossly normal and well kempt Mental Status: mental status grossly normal Speech and movement: Normal speech and movement present and Clear speech present Affect: normal affect Attitude: cooperative Thought process: Normal thought process present Thought content: Normal thought content present Insight: Fair insight present (Psych) Judgement: Fair judgement present (Psych) Office Procedures Post Void Residual Post Residual Void Post Void Residual (PVR): 34 [id number] Void Residual by ultrasound Results AMB Urinalysis, Automated UA Leukoctes 0 Leora/uL Last Edit by Joel Michelle on 09/24/24 14:03 UA Nitrite Last Edit by Joel Michelle on 09/24/24 14:03 UA Urobilinogen 0.2 mg/dL Last Edit by [employer] Michelle on 09/24/24 14:03 UA Protein 0 mg/dL Last Edit by [employer] on 09/24/24 14:03 UA pH 6.5 Last Edit by [employer] Michelle on 09/24/24 14:03 UA Blood 0 Colby/uL Last Edit by [employer] on 09/24/24 14:03 UA Specific Kincaid 1.010 Last Edit by [employer] Michelle on 09/24/24 14:03 UA Ketone Last Edit by [employer] Michelle on 09/24/24 14:03 UA Bilirubin 0 mg/dL Last Edit by [employer] on 09/24/24 14:03 UA Glucose 0 mg/dL Last Edit by [employer] on 09/24/24 14:03 Results Reviewed Results Reviewed: Laboratory Last Values Urine pH (Auto) 6.5 09/24/24 13:36 Specific Kincaid (Auto) 1.010 09/24/24 13:36 Urine Protein (Auto) 0 mg/dL 09/24/24 13:36 Glucose (UA)(Auto) 0 mg/dL 09/24/24 13:36 Urine Blood (Auto) 0 Colby/uL 09/24/24 13:36 Urine Bilirubin (Auto) 0 mg/dL 09/24/24 13:36 Urine Urobilinogen (Auto) 0.2 mg/dL 09/24/24 13:36 Leukocyte Esterase (Auto) 0 Leora/uL 09/24/24 13:36 Assessment & Plan Assessment & Plan (1) Enlarged prostate: Code(s): N40.0 - Benign prostatic hyperplasia without lower urinary tract symptoms Category: Medical (2) Incomplete bladder emptying: Code(s): R33.9 - Retention of urine, unspecified Category: Medical (3) Renal cyst: Code(s): N28.1 - Cyst of kidney, acquired Category: Medical (4) Elevated PSA: Code(s): R97.20 - Elevated prostate specific antigen [PSA] Category: Medical Plan In office urinalysis results reviewed with the patient today; as noted above. PVR 34 mL. Patient currently denies any bothersome urinary issues or concerns. He reports be happy with current voiding parameters. Recent PSA results reviewed with the patient today; as noted above. Continue finasteride and Flomax as prescribed. Will continue with surveillance monitoring of PSA. Will obtain PSA in 6 months. Follow-up in 6 months with lab to be completed prior and PVR at next office visit; or sooner with any issues, concerns, and or questions. Orders: Orders AMB Urinalysis Automated Today Z13.9 - Encounter for screening, unspecified Prostate Specific Antigen 6 Months N40.0 - Benign prostatic hyperplasia without lower urinary tract symptoms AMB Post Void Residual by ultrasound Today R33.9 - Retention of urine, unspecified Medications: Refilled finasteride 5 mg PO DAILY 90 days 90 tabs 2RF N32.0 - Bladder-neck obstruction tamsulosin 0.4 mg PO DAILY 90 days 90 caps 2RF R97.20 - Elevated prostate specific antigen [PSA] Patient Instructions: The patient had an opportunity to ask questions regarding the treatment plan. All questions were answered. Physical exam, labs, and imaging were discussed and reviewed in detail. As well as risks, benefits, and discussion of treatment choices. No major barriers to understanding were identified. The patient expressed understanding and agreement with the above treatment plan. The patient was made aware they should contact our office by phone for worsening of their current condition, the appearance of new symptoms, or with any questions or concerns. Compliance is encouraged with any medications and follow up testing that is ordered. It is a privilege to be allowed the opportunity to participate in? your urological care.? Again, if you have any questions or concerns If you have any questions or concerns please do not hesitate to contact me. The office is [phone]. This note is constructed using voice recognition software. While every effort has been made to ensure accuracy hosiery repairer errors may have been included. Yours sincerely, DANAE Ascencio Coding Level of Care Code Est Pt Level 3 (46617) Complex EM visit Add On G2211 Diagnoses Enlarged prostate N40.0 Incomplete bladder emptying R33.9 Renal cyst N28.1 Elevated PSA R97.20 CPT Codes Post Residual Void - PVR CPT Code: 46756-Gfoj Void Residual by ultrasound ([id number])
== END 2024-09-24 14:25 | disposition home or self-care (01) ==
PROVIDERS: PCP Physician Assistant; Visit Provider Nurse Practitioner Family
DX: N40.0 Benign prostatic hyperplasia without lower urinary tract symptoms (principal); R33.9 Retention of urine, unspecified; N28.1 Cyst of kidney, acquired; R97.20 Elevated prostate specific antigen [PSA]; Z13.9 Encounter for screening, unspecified
CPT/HCPCS: 99213; G2211

== ENCOUNTER → 2024-09-24 13:38 | Outpatient (BNVA) | payer MEDICARE, SELFPAY | PROVIDERS: PCP Physician Assistant; Visit Provider Nurse Practitioner Family | DX: N40.1 Benign prostatic hyperplasia with lower urinary tract symptoms (principal); R33.8 Other retention of urine; N28.1 Cyst of kidney, acquired; N32.0 Bladder-neck obstruction; R97.20 Elevated prostate specific antigen [PSA]; Z79.899 Other long term (current) drug therapy | CPT/HCPCS: 51798; 81003; 99212 ==

== ENCOUNTER 2024-10-02 14:37 | Outpatient (AMB) | payer MEDICARE, SELFPAY ==
[2024-10-02 14:56] VITALS: BP 130/78; PULSE 78; O2SAT 97; BMI 25.8
--- NOTE | 2024-10-02 14:56 | A.OFFVIS_ITS ---
Intake Vital Signs 10/02/24 14:56 Height 5 ft 7 in Weight 165 lb BMI 25.8 BP 130/78 Blood Pressure Location Lt brachial Position Sitting Pulse 78 Pulse Source Pulse Oximeter Pulse Oximetry (%) 97 Oxygen Delivery Method Room Air Intake Visit Reasons: AWV G0438 Information Assurance Manager Required: No Accompanied by: Self / Same As Patient Allergies amoxicillin [AMOXICILLIN] Allergy (Severe, Verified 10/02/24 15:05) RASH zoster vaccine live [SHINGLES VACCINE] Allergy (Severe, Verified 10/02/24 15:05) SWELLING AND PAIN metoprolol Adverse Reaction (Severe, Verified 10/02/24 15:05) Nausea PEG 3350-KCl-Na Bicarb-NaCl Allergy (Unknown, Uncoded 10/02/24 15:05) Unknown pollen Allergy (Unknown, Uncoded 10/02/24 15:05) Itchy Eyes Medication List - Last Reconciled 10/02/24 by Ramiro Ellis PA-C finasteride 5 mg PO DAILY 90 days losartan 50 mg PO DAILY tamsulosin 0.4 mg PO DAILY 90 days HPI AWV G0438 HPI Details Patient is a 74 year male here today for routine annual physical. Patient has a past medical history significant for essential hypertension and elevated PSA. Concern--> reports over last 4 months having throat congestion and discomfort in his lower throat. He reports getting COVID around the time were his symptoms started. He also had started tamsulosin and finasteride for elevated PSAs by his urologist. A scope of his reports his voice has changed due to the inflammation and mucus. He does feel that his tongue has a bit swollen as well. He is concerned about the start issue in his interested in seeing an ENT for evaluation Today we discussed his [place] of care. Also discussed his comprehensive care plan that was skin patient's documents Vaccines: Up-to-date with COVID vaccine, pneumonia vaccine, shingles vaccine, needs flu vaccine Colon cancer screening: Cologuard negative in November 2022, repeat 3 years Laboratory Tests 03/15/23 03/20/24 04/19/24 14:31 09:26 08:12 RBC Hgb 14.9 Creatinine Cholesterol 192 LDL Cholesterol, C alc 120 H PSA Screen 5.77 H 9.10 H Total PSA 7.99 H 09/03/24 09/18/24 09:15 09:53 RBC 4.83 Hgb Creatinine 0.95 Cholesterol 181 LDL Cholesterol, C alc 104 H PSA Screen Total PSA 3.79 HPI Comments History of Present Illness Details reviewed past medical history- yes reviewed surgical / hospitalization history- yes reviewed current medications- yes reviewed family history- yes home safety throw rugs? grab bars? raised toilet seat? working smoke detectors? activities of daily living difficulty bathing or showering? difficulty dressing? difficulty using the toilet? difficulty getting in and out of bed? difficulty walking? receives help from other person's with any of the above tasks? instrumental activities of daily living uses telephone - gets to place out of walking distance- go shopping for groceries- repairs own meals- does own minor home maintenance- does own laundry- does own housework- manages own money- currently takes medication- end of life planning discussed advanced directives- yes advanced directives on file? discussed wishes expressed in advanced directives. fall risk have you had any falls with injuries in the past year? have you had 2 or more falls in the past year? fall risk assessment: [facility] Medical History Essential hypertension Surgical History History of knee surgery History of hemorrhoidectomy Family History Father Prostate cancer Social History Housing: House Alcohol intake: current Alcohol intake frequency: holidays/special occasions only Patient Tobacco Use Status: Never used Tobacco e-Cigarette/Vaping Use: Never Used Second Hand Smoke Exposure: No service: No Current occupational status: retired Cognitive needs: No Hearing needs: No Vision needs: Yes (Glasses) Questionnaire Medicare Wellness Checkup [age] What gender do you identify with?: male During the past 4 weeks, how much have you been bothered by emotional problems such as feeling anxious, depressed, irritable, sad or downhearted, and blue?: moderately During the past 4 weeks, has your physical & emotional health limited your social activities with family, friends, neighbors, or groups?: not at all During the past 4 weeks, how much bodily pain have you generally had?: no pain During the past 4 weeks, was someone available to help you if you needed & wanted help?: yes, some During the past 4 weeks, what was the hardest physical activity you could do for at least 2 minutes?: heavy Can you get to places out of walking distance without help? (For eg., can you travel alone on buses, taxis or drive your car?): Yes Can you go shopping for groceries or clothes without someone's help?: Yes Can you prepare your own meals?: Yes Can you do your housework without help?: Yes Because of any health problems, do you need the help of another person with your personal care needs such as eating, bathing, dressing or getting around the house?: No Can you handle your own money without help?: Yes During the past 4 weeks, how would you rate your health in general?: good During the past 4 weeks how have things been going for you?: pretty well Are you having difficulties driving your car?: no Do you always fasten your seat belt when you are in a car?: yes, usually During past 4 weeks, have you been bothered by the following: never: Teeth or denture problems? and Problems using the telephone?, seldom: Sexual problems?, Trouble eating well? and Tiredness or fatigue? and sometimes: Falling or dizzy when standing up Have you fallen 2 or more times in the past year?: No Are you a smoker?: no During the past 4 weeks, how many drinks of wine, beer, or other alcoholic beverages did you have?: 1 drink or less per week Do you exercise for about 20 minutes 3 or more times a week?: no, I usually do not exercise this much Have you been given information to help with the following?: yes: Hazards in your house that might hurt you? and yes: Keeping track of your medications? How often do you have trouble taking medicines the way you have been told to take them?: I always take medicine as prescribed How confident are you that you can control & manage most of your health problems?: very confident What is your race?: White Mini Mental State Exam (MMSE) Orientation What is the (year) (season) (date) (day) (month)?: year Where are we (state) (county) (town or city) (hospital) (floor)?: town or city Attention & Calculation (CHOOSE ONE) Ask pt to begin with 100 & count backward by 7. Stop after 5 repeats. If pt cannot ask them to spell the word WORLD backward.: 93 Spell WORLD backwards (DLROW): 5 letters Score Score: 8 Activity of Daily Living Bathing - sponge bath, tub bath or shower: receives no assistance (gets in/out by self, if usual bathing means Dressing - getting clothes from closets & drawers, including inner/outer garments & fasteners.: gets clothes & gets completely dressed without help Toileting - going to the 'toilet room' for urine/bowel elimination & cleaning self/arranging clothes: goes to toilet room, cleans self, arranges clothes without help Transfer: moves in & out of bed and chair without help (may use support object) Continence: controls urination/bowel movements completely by self Feeding: feeds self without help Total Score: 0 Information obtained from: patient Using telephone: independent Traveling: independent Shopping: independent Preparing meals: independent Housework: independent Taking medicine: independent Managing money: independent PHQ-9 Over the last 2 weeks, how often have you been bothered by any of the following problems? 1. Little interest or pleasure in doing things: several days 2. Feeling down, depressed, or hopeless: nearly every day 3. Trouble falling or staying asleep, or sleeping too much: several days 4. Feeling tired or having little energy: several days 5. Poor appetite or overeating: not at all 6. Feeling bad about yourself - or that you are a failure or have let yourself or your family down: not at all 7. Trouble concentrating on things, such as reading the newspaper or watching television: not at all 8. Moving or speaking so slowly that other people could have noticed. Or the opposite - being so fidgety or restless that you have been moving around a lot more than usual: not at all 9. Thoughts that you would be better off or of hurting yourself in some way: not at all Total score: 6 Depression Screening Interpretation: Positive Depression Screening Follow-up: Existing condition Depression Screening Done: Yes 26045 - PHQ-9 Billing: Yes Source: Developed by Drs. Bryce Burton, Lynette Dietz, Darshan Porter and colleagues, with an educational sandee from [employer]. Physical Exam Vital Signs: Last Vital Signs Pulse 78 10/02/24 14:56 BP 130/78 10/02/24 14:56 Pulse Ox 97 10/02/24 14:56 Oxygen Delivery Method Room Air 10/02/24 14:56 BMI result Body Mass Index 25.8 HEENT Other: hearing screening whisper test- pass Eyes Other: vision screening- 20 20 os od ou Other: urinary incontinence? n o Neuro Other: balance Romberg- normal tandem walk test- able walk-in turned test- able rise from sit to stand-with an two seconds Assessment & Plan Assessment & Plan (1) Annual wellness visit: Code(s): Z00.00 - Encounter for general adult medical examination without abnormal findings Plan: As per HPI (2) Throat congestion: Code(s): R68.89 - Other general symptoms and signs Plan: As per HPI, patient has had 4 months of intermittent throat congestion and postnasal drip.. He reports his voice has changed a bit and he feels his tongue is a bit swollen. He is interested in seeing ENT specialist for possible scope to evaluate his larynx. Note around the time the symptoms have started did have COVID and also restless started on finasteride for his elevated PSAs. Unclear if this is an allergy to his finasteride. Will reach out to patient's urologist about perhaps taking holiday from finasteride and see if his symptoms clear as this may be an allergy. (3) Hoarseness: Code(s): R49.0 - Dysphonia Plan: As above Orders: Orders IgE Antibody (Anti-IgE IgG) 10/02/24 R68.89 - Other general symptoms and signs Referrals Ear/Nose/Throat Referral R68.89 - Other general symptoms and signs Medications: New cetirizine 10 mg PO DAILY 90 tabs 1RF 90 days J30.89 - Other allergic rhinitis Quality Reporting (2019) Depression/Bipolar (159/160/161/177) PHQ-9: Total score: 6 Coding Level of Care Code Medicare First (G0438) Est Pt Level 3 (02709) Diagnoses Annual wellness visit Z00.00 Throat congestion R68.89 Hoarseness R49.0 CPT Codes Advance Care Planning - Time spent: 1-15 minutes, not on file ([id number]) Additional Codes PHQ-9 - 09508 - PHQ-9 Billing: Yes ([id number]) Advance Care Planning Advance Care Planning discussion: Exists, not on file Date of discussion: 10/02/24 Forms completed: [facility]IN[facility] Time spent: 1-15 minutes, not on file Actual minutes spent: 4
== END 2024-10-02 15:57 | disposition home or self-care (01) ==
PROVIDERS: PCP Physician Assistant; Visit Provider Physician Assistant
DX: Z00.00 Encounter for general adult medical examination without abnormal findings (principal); R68.89 Other general symptoms and signs; R49.0 Dysphonia

== ENCOUNTER → 2024-10-02 14:37 | Outpatient (BNVA) | payer MEDICARE, SELFPAY | PROVIDERS: PCP Physician Assistant; Visit Provider Physician Assistant | DX: Z00.00 Encounter for general adult medical examination without abnormal findings (principal); R68.89 Other general symptoms and signs; R49.0 Dysphonia | CPT/HCPCS: 96127; 99212 ==

== ENCOUNTER 2024-12-28 15:37 | Outpatient (REF) | payer MEDICARE, SELFPAY ==
[2024-12-28 16:38] LABS: Hematocrit 44.2 % (42.0-52.0); Hemoglobin 14.6 g/dl (14.0-18.0); Mean Corpuscular Hemoglobin 29.5 pg (27.0-33.0); Mean Corpuscular Volume 89.3 fL (80.0-98.0); Mean Platelet Volume 10.7 fL (9.4-12.4); Platelet Count 241 X10*3/uL (160-400); Red Blood Count 4.95 X10*6/uL (4.60-5.80); Red Cell Distribution Width 12.2 % (11.0-16.0); White Blood Count 7.1 X10*3/uL (4.8-10.8)
[2024-12-28 17:02] LABS: Alanine Aminotransferase 19 U/L (0-40); Albumin Level 4.5 g/dL (3.5-5.0); Alkaline Phosphatase 59 U/L (39-117); Anion Gap 14 (12-20); Aspartate Amino Transferase 25 U/L (5-37); Bilirubin Total 0.6 mg/dL (0.0-1.0); Blood Urea Nitrogen 18 mg/dL (9-16); Carbon Dioxide 28 mmol/L (22-29); Chloride 104 mmol/L (96-108); Estimated Glomerular Filt Rate > 60; Glucose Fasting 94 mg/dL (60-99); Potassium 4.6 mmol/L (3.3-5.1); Sodium 141 mmol/L (135-145); Total Protein 8.1 g/dL (6.5-8.0)
[2025-01-05 17:38] LABS: IgE Antibody (Anti-IgE IgG) <6 ng/mL (<168)
== END 2024-12-28 15:38 | disposition home or self-care (01) ==
LOC: HO.LAB 15:37
PROVIDERS: PCP Physician Assistant; Visit Provider Physician Assistant
DX: I10 Essential (primary) hypertension (principal); R68.89 Other general symptoms and signs
CPT/HCPCS: 36415; 80053; 83520; 85027

== ENCOUNTER 2025-01-02 13:54 | Outpatient (AMB) | payer MEDICARE, SELFPAY ==
--- NOTE | 2025-01-02 13:59 | MHC.PC.OV ---
Vital Signs 01/02/25 14:01 Height 5 ft 7 in Weight 167 lb 8 oz BMI 26.2 BP 130/76 Blood Pressure Location Lt brachial Position Sitting Pulse 79 Pulse Source Pulse Oximeter Temp 97.3 F Temp Source Skin Pulse Oximetry (%) 96 Oxygen Delivery Method Room Air Intake Visit Reasons: 3mth f/u Intake Note: Patient is here to follow up on HTN. 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 Accompanied by: Self / Same As Patient Allergies amoxicillin [AMOXICILLIN] Allergy (Severe, Verified 01/02/25 14:09) RASH zoster vaccine live [SHINGLES VACCINE] Allergy (Severe, Verified 01/02/25 14:09) SWELLING AND PAIN metoprolol Adverse Reaction (Severe, Verified 01/02/25 14:09) Nausea finasteride Adverse Reaction (Intermediate, Verified 01/02/25 14:19) tough swelling PEG 3350-KCl-Na Bicarb-NaCl Allergy (Unknown, Uncoded 01/02/25 14:09) Unknown pollen Allergy (Unknown, Uncoded 01/02/25 14:09) Itchy Eyes Medication List - Last Reconciled 01/02/25 by Ramiro Ellis PA-C cetirizine 10 mg PO DAILY 90 days losartan 50 mg PO DAILY tamsulosin 0.4 mg PO DAILY 90 days Tobacco use date assessed: 01/02/25 Fall risk assessment: No Falls in past year Last assessed Fall Risk: 01/02/25 Dental Screening Dental Screen Date: 01/02/25 Did you have a dental visit in the last 12 months?: Yes Did you have a dental problem in the last 6 months where you did not have access to dental care?: No Was dental information given to patient?: Patient has dentist HPI 3mth f/u HPI Details Patient is a 74 year male here today for routine annual physical. Patient has a past medical history significant for essential hypertension and elevated PSA. ---Concern-> return reports over 10 months having a chronic cough and congestion, fatigue and feeling a bit under the weather. He also reports at times feeling somewhat short of breath and heart palpitations particularly when lying down at night. He did have a case of COVID infection in February of 2024 which he believes started his symptoms. Of note did have side effect to finasteride causing some mild tongue/ throat swelling. He has tried qspb-gay-pibgubr cough cold medications though have not been effective. Most recent labs reviewed and did not show any abnormality in his CBC your comprehensive metabolic panel. BPH-> continues to have elevated PSA. Does have a brother with prostate cancer. Does report some nocturia and weak urinary stream at times. He is now interested in urology referral and starting finasteride and tamsulosin for his urinary symptoms. .. Hypertension: blood pressure stable today in office. Patient continues on losartan with good effect on his blood pressure. Laboratory Tests 04/19/24 04/19/24 09/18/24 08:12 09:38 09:53 RBC Creatinine Total PSA 7.99 H 3.79 Total PSA (off-sit e) 6.7 H 12/28/24 15:51 RBC 4.95 Creatinine 0.85 Total PSA Total PSA (off-sit e) [facility] Medical History Essential hypertension Surgical History History of knee surgery History of hemorrhoidectomy Family History Father Prostate cancer Social History Housing: House Alcohol intake: current Alcohol intake frequency: holidays/special occasions only Patient Tobacco Use Status: Never used Tobacco e-Cigarette/Vaping Use: Never Used Second Hand Smoke Exposure: No service: No Current occupational status: retired Cognitive needs: No Hearing needs: No Vision needs: Yes (Glasses) Questionnaire PHQ-9 Over the last 2 weeks, how often have you been bothered by any of the following problems? 1. Little interest or pleasure in doing things: not at all 2. Feeling down, depressed, or hopeless: not at all 3. Trouble falling or staying asleep, or sleeping too much: not at all 4. Feeling tired or having little energy: not at all 5. Poor appetite or overeating: not at all 6. Feeling bad about yourself - or that you are a failure or have let yourself or your family down: not at all 7. Trouble concentrating on things, such as reading the newspaper or watching television: not at all 8. Moving or speaking so slowly that other people could have noticed. Or the opposite - being so fidgety or restless that you have been moving around a lot more than usual: not at all 9. Thoughts that you would be better off or of hurting yourself in some way: not at all Total score: 0 Depression Screening Interpretation: Negative Depression Screening Done: Yes 08759 - PHQ-9 Billing: Yes Source: Developed by Drs. Bryce Burton, Lynette Dietz, Darshan Porter and colleagues, with an educational sandee from [employer]. Thrive Questionnaire Date Thrive assessed: 01/02/25 I am a: Patient What is your living situation today?: I have a steady place to live Within the past 12 months, did the food you bought not last and you didn't have the money to get more?: Never true Within the past 12 months, did you worry whether your food would run out before you got money to buy more?: Never true Do you have trouble paying for medicines?: No Do you have trouble getting transportation to medical appointments?: No Do you have trouble paying your heating and electricity bill?: No Do you have trouble taking care of your child, family member or friend?: No Do you have trouble with day-to-day activities such as bathing, preparing meals, shopping, managing finances, etc.?: No Are you currently unemployed and looking for a job?: No Are you interested in more education?: No Please select the resources that you would like help with: None Currently or been in a relationship where the following occur: No concerns reported THRIVE Score: 0 AUDIT C Alcohol Use Questionnaire (AUDIT-C) 2. How many drinks containing alcohol do you have on a typical day when you are drinking?: 1 or 2 3. How often do you have six or more drinks on one occasion?: Never Total Score: 0 AMBERLY-7 AMB Questionnaire AMBERLY-7 Date AMBERLY - 7 assessed: 01/02/25 Feeling nervous, anxious, or on edge: 0 = Not at all Not being able to stop or control worryin = Not at all Worrying too much about different things: 0 = Not at all Trouble relaxin = Not at all Being so restless that it is hard to sit still: 0 = Not at all Becoming easily annoyed or irritable: 0 = Not at all Feeling afraid as if something awful might happen: 0 = Not at all Total AMBERLY-7 score (0-4 normal; 5-9 mild; 10-14 moderate; 15-21 severe): 0 Source: Developed by Drs. Bryce Burton, Lynette Dietz, Darshan Porter and colleagues, with an educational sandee from [employer]. AMBERLY-7 Assessment Billing AMBERLY-7 Assessment Tool: AMBERLY-7 Assessment 42479 Review of Systems Const Denies headache(s) Eyes Denies loss of vision ENT Denies vertigo, Denies dizziness, Denies headache(s) and Denies sore throat Card Denies chest pain, Reports leg edema, Denies lightheadedness and Reports orthopnea Resp Reports chest congestion, Reports cough, Denies hemoptysis and Denies wheezing GI Denies abdominal pain, Denies melena, Denies constipation, Denies diarrhea and Denies vomiting Denies dysuria, Denies urinary frequency and Denies urinary urgency Musc Denies arthralgias, Denies joint swelling, Denies numbness and Denies tingling Neuro Denies Abnormal speech present, Denies behavioral changes, Denies vertigo, Denies dizziness, Denies headache(s), Denies loss of vision, Denies memory loss, Denies numbness and Denies tingling Psych Denies anxiety, Denies behavioral changes, Denies depression, Denies memory loss and Denies panic attacks Vincenzo/Lymph Denies easy bleeding and Denies easy bruising Aller/Immun Denies wheezing Physical exam (Primary Care) Vital Signs: Last Vital Signs Temp 97.3 F 01/02/25 14:01 Pulse 79 01/02/25 14:01 BP 130/76 01/02/25 14:01 Pulse Ox 96 01/02/25 14:01 Oxygen Delivery Method Room Air 01/02/25 14:01 BMI result Body Mass Index 26.2 Tobacco/Smoking Status: Tobacco use Status Tobacco use date assessed 01/02/25 01/02/25 14:06 Patient Tobacco Use Status Never used Tobacco 01/02/25 14:06 e-Cigarette/Vaping Use Never Used 01/02/25 14:06 PHQ-9: PHQ-9 Score PHQ-9: Total score 0 01/02/25 14:12 Depression Screening Interpretation: Negative Thrive Assessment: Date of Thrive Assessment Date Thrive assessed 01/02/25 01/02/25 14:06 Currently or been in a relationship where the following occur: No concerns reported Const General: healthy appearing, no acute distress, alert and awake Nutritional Appearance: well nourished Orientation/consciousness: oriented to person, oriented to place and oriented to time HENMT Ears: TM's normal bilaterally General nose exam: Normal nasal mucous membranes and turbinates present Eyes Conjunctivae: conjunctivae normal Sclerae: sclerae normal Pupils: Equal, round and reactive pupils present Neck Neck: Yes no lymphadenopathy and Yes no JVD Thyroid: Thyroid normal Carotids: no bruits Resp Effort & Inspection: normal respiratory effort and not tachypneic Auscultation: no crackles, no rales, no rhonchi and no wheezes Cardio Rate: regular rate Rhythm: regular rhythm Heart sounds: no murmurs and normal S1 and S2 GI Palpation (GI): Soft to palpation, nontender, no hepatomegaly and no splenomegaly Auscultation: normal bowel sounds Skin General skin exam: no rashes or lesions noted and dry skin Neuro General: oriented to person, oriented to place and oriented to time Cranial nerves: Yes Equal, round and reactive pupils present Speech: No Abnormal speech present Gait exam (Neuro): Normal gait present Motor exam (neuro): no tremor noted Extrem Right upper extremity: full ROM Left upper extremity: full ROM Right lower extremity: full ROM; no edema Left lower extremity: full ROM; no edema Psych Mental Status: mental status grossly normal Speech and movement: Normal speech and movement present Affect: normal affect Attitude: cooperative Thought process: Normal thought process present Coding Level of Care Code Est Pt Level 4 (90225) Diagnoses Chronic cough R05.3 Essential hypertension I10 Enlarged prostate N40.0 Heart palpitations R00.2 Additional Codes PHQ-9 - 14382 - PHQ-9 Billing: Yes ([id number]) AMBERLY-7 Assessment Billing - AMBERLY-7 Assessment Tool: AMBERLY-7 Assessment 25524 ([id number]) Assessment & Plan Assessment & Plan (1) Chronic cough: Code(s): R05.3 - Chronic cough Category: Medical Plan: As per HPI patient seems to be suffering with a chronic cough. EKG today in office showing normal sinus rhythm. Will send for chest x-ray to evaluate for any pulmonary infiltrate. Will empirically treat with an antibiotic and a prednisone taper along with an albuterol inhaler to help him with his pulmonary symptoms. Will consider CT evaluation of his chest to evaluate for any pulmonary scarring from his previous COVID infection. (2) Essential hypertension: Code(s): I10 - Essential (primary) hypertension Category: Medical Plan: Patient's blood pressure acceptable today in office. Will continue him on his current dose of losartan with goal blood pressure to remain below 140/90 (3) Enlarged prostate: Code(s): N40.0 - Benign prostatic hyperplasia without lower urinary tract symptoms Category: Medical Plan: Patient continues to follow urology. Continues on tamsulosin with good effect on reducing his PSA. (4) Heart palpitations: Code(s): R00.2 - Palpitations Category: Medical Plan: Did EKG today in office which only showed sinus rhythm. Will consider Holter monitor evaluate for an arrhythmia Orders: Orders XR chest 2V 01/02/25 R05.3 - Chronic cough SARS-CoV2/FLU/RSV 01/02/25 R05.3 - Chronic cough Sputum Cult + Gram stain 01/02/25 R05.3 - Chronic cough
[2025-01-02 14:01] VITALS: BP 130/76; PULSE 79; TEMP 36.3; O2SAT 96; BMI 26.2
== END 2025-01-02 15:01 | disposition home or self-care (01) ==
PROVIDERS: PCP Physician Assistant; Visit Provider Physician Assistant
DX: R05.3 Chronic cough (principal); I10 Essential (primary) hypertension; N40.0 Benign prostatic hyperplasia without lower urinary tract symptoms; R00.2 Palpitations

== ENCOUNTER 2025-01-02 13:54 | Outpatient (REF) | payer MEDICARE, SELFPAY ==
--- NOTE | ~2025-01-02 | XR_ITS ---
CLINICAL HISTORY: R05.3 - Chronic cough 2 view chest x-ray Comparison: None Findings: No consolidation or effusion. Normal size heart. No acute fracture. IMPRESSION: 1. No acute findings. This document has been electronically signed by: Alphonso Aviles MD on 01/03/2025 05:55:11
[2025-01-02 16:36] LABS: Influenza A PCR NEGATIVE (Negative); Influenza B PCR NEGATIVE (Negative); Resp Syncy Virus RNA Qual PCR NEGATIVE (Negative); SARS COV2 PCR INHOUSE NEGATIVE (Negative)
== END 2025-01-02 13:55 | disposition home or self-care (01) ==
LOC: HO.XRAY 13:54
PROVIDERS: PCP Physician Assistant; Visit Provider Physician Assistant
DX: R05.3 Chronic cough (principal); R00.2 Palpitations; I10 Essential (primary) hypertension; N40.0 Benign prostatic hyperplasia without lower urinary tract symptoms
CPT/HCPCS: 0241U; 71046; 96127; 99212

== ENCOUNTER → 2025-01-02 15:18 | Outpatient (BNV) | payer MEDICARE, SELFPAY | PROVIDERS: PCP Physician Assistant; Visit Provider Radiology Diagnostic Radiology | DX: R05.3 Chronic cough (principal) | CPT/HCPCS: 71046 ==

== ENCOUNTER 2025-01-23 11:25 | Outpatient (AMB) | payer MEDICARE, SELFPAY ==
--- NOTE | 2025-01-23 11:25 | A.OFFPC_ITS ---
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 Information Interpreted: non-clinical & clinical Branch Examiner: Not Required per policy Accompanied by: Self / Same As Patient Allergies amoxicillin [AMOXICILLIN] Allergy (Severe, Verified 01/23/25 12:03) RASH zoster vaccine live [SHINGLES VACCINE] Allergy (Severe, Verified 01/23/25 12:03) SWELLING AND PAIN metoprolol Adverse Reaction (Severe, Verified 01/23/25 12:03) Nausea finasteride Adverse Reaction (Intermediate, Verified 01/23/25 12:03) tough swelling PEG 3350-KCl-Na Bicarb-NaCl Allergy (Unknown, Uncoded 01/23/25 12:03) Unknown pollen Allergy (Unknown, Uncoded 01/23/25 12:03) Itchy Eyes Medication List - Last Reconciled 01/23/25 by Ramiro Ellis PA-C albuterol sulfate 90 mcg/actuation 1 inh inhalation QID PRN 30 days cetirizine 10 mg PO DAILY 90 days doxycycline hyclate 100 mg PO BID 7 days losartan 50 mg PO DAILY prednisone 10 mg PO DIRECTED 9 days tamsulosin 0.4 mg PO DAILY 90 days Tobacco use date assessed: 01/02/25 Fall risk assessment: No Falls in past year Last assessed Fall Risk: 01/23/25 Dental Screening Dental Screen Date: 01/02/25 HPI f/u Chronic cough HPI Details Patient is a 74 year male being evaluated for telehealth. Patient has a past medical history significant for essential hypertension and elevated PSA. Chronic cough: return reports over 11 months having a chronic cough and congestion, fatigue and feeling a bit under the weather. He also reports at times feeling somewhat short of breath and heart palpitations particularly when lying down at night. He did have a case of COVID infection in February of 2024 which he believes started his symptoms. Of note did have side effect to finasteride causing some mild tongue/ throat swelling. He has tried urfm-tye-sqgrevl cough cold medications though have not been effective. Recently was started on a 9 day prednisone taper which reports was pretty effective on reducing his chest congestion and cough about 80%. He still has some upper throat congestion especially when lying down. He does have an antibiotic doxycycline available to him though has not used this. He is interested in further investigation of possible allergies. We did discuss possibly getting a CT of his chest to evaluate for lung parenchymal scarring from his COVID infection about a year ago. [facility] Medical History Essential hypertension Surgical History History of knee surgery History of hemorrhoidectomy Family History Father Prostate cancer Social History Housing: House Alcohol intake: current Alcohol intake frequency: holidays/special occasions only Patient Tobacco Use Status: Never used Tobacco e-Cigarette/Vaping Use: Never Used Second Hand Smoke Exposure: No service: No Current occupational status: retired Cognitive needs: No Hearing needs: No Vision needs: Yes (Glasses) Questionnaire Thrive Questionnaire Date Thrive assessed: 01/02/25 AMBERLY-7 AMB Questionnaire AMBERLY-7 Date AMBERLY - 7 assessed: 01/02/25 Source: Developed by Drs. Bryce Burton, Lynette Dietz, Darshan Porter and colleagues, with an educational sandee from [employer]. Review of Systems Const Denies headache(s) Eyes Denies loss of vision ENT Denies vertigo, Denies dizziness, Denies headache(s), Reports nasal congestion, Reports sinus pressure and Denies sore throat Card Denies chest pain, Denies leg edema and Denies lightheadedness Resp Reports cough, Denies hemoptysis and Denies wheezing GI Denies abdominal pain, Denies melena, Denies constipation, Denies diarrhea and Denies vomiting Denies dysuria, Denies urinary frequency and Denies urinary urgency Musc Denies arthralgias, Denies joint swelling, Denies numbness and Denies tingling Neuro Denies behavioral changes, Denies vertigo, Denies dizziness, Denies headache(s), Denies loss of vision, Denies memory loss, Denies numbness and Denies tingling Psych Denies anxiety, Denies behavioral changes, Denies depression, Denies memory loss and Denies panic attacks Vincenzo/Lymph Denies easy bleeding and Denies easy bruising Aller/Immun Denies wheezing Physical exam (Primary Care) Tobacco/Smoking Status: Tobacco use Status Tobacco use date assessed 01/02/25 01/23/25 11:28 Patient Tobacco Use Status Never used Tobacco 01/23/25 11:28 e-Cigarette/Vaping Use Never Used 01/23/25 11:28 Thrive Assessment: Date of Thrive Assessment Date Thrive assessed 01/02/25 01/23/25 11:28 Telehealth Telehealth Telehealth Platform: Telephone Location of provider rendering services: practice address Location of patient: address on file Patient Identification confirmed using: Name, : Yes Telehealth method: voice only Patient verbally consented to treatment: Yes Patient verbally consented to billing insurance company: Yes Patient informed of any privacy concerns related to visit: Yes Minutes spent on Phone/Video with Pt.: 15 Coding Level of Care Code Tele Est Pt Level 4 (66381) Diagnoses Chronic cough R05.3 Assessment & Plan Assessment & Plan (1) Chronic cough: Code(s): R05.3 - Chronic cough Category: Medical Plan: As per HPI patient seems to be suffering with a chronic cough. Patient recently placed on a prednisone taper for 9 days which cleared 80% of his symptoms. He does have an albuterol inhaler and antibiotic available to him though has not used them. He is willing to be further evaluated for environmental allergies. Advised on perhaps switching his cetirizine to montelukast for better control of his nasal congestion, postnasal drip ect... Will hold off on this and do further testing 1st. We also discuss the his chronic cough that has been nearly a year now since his COVID infection in 03/10/2024. Will send for CT of chest to evaluate for parenchymal lung disease. Orders: Orders Resp Allergy Profile Region I 01/23/25 R05.3 - Chronic cough, R05.9 - Cough, u nspecified CT chest wo IV con 01/23/25 R05.3 - Chronic cough Medications: Discontinued prednisone Take 3 tablets x3 days, 2 tablets x3 days, 1 tablet x3 days Discontinued Reason: Doctor's Order 10 mg PO DIRECTED 9 days 18 tabs 0RF R05.3 - Chronic cough
== END 2025-01-23 12:35 | disposition home or self-care (01) ==
LOC: HO.HMCH 11:25
PROVIDERS: PCP Physician Assistant; Visit Provider Physician Assistant
DX: R05.3 Chronic cough (principal)

== ENCOUNTER 2025-01-25 11:51 | Outpatient (REF) | payer MEDICARE, SELFPAY ==
[2025-01-28 22:23] LABS: Class Alternaria alternata 0; Class Aspergillus fumigatus 0; Class Bermuda Grass 0; Class Birch 0; Class Cat Dander 0; Class Cladosporium herbarum 0; Class Cockroach 0; Class Common Ragweed 0; Class Cottonwood 0; Class Derm. pterony 0; Class Dermatophagoides farinae 0; Class Dog Dander 0; Class Elm 0; Class Maple Box Elder 0/1; Class Mountain Cedar 2; Class Mouse Urine Protein 0; Class Mugwort 0; Class Oak 0; Class Penicillium crysogenum 0; Class Rough Pigweed 0; Class Sheep Sorrel 0; Class Sycamore 0; Class Timothy Grass 0; Class Walnut Tree 0; Class White Ash 0; Class White Mulberry 0; D001 IgE D pteronyssinus <0.10 kU/L; D002 - IgE D farinae <0.10 kU/L; E001 - IgE Cat Dander <0.10 kU/L; E005 - IgE Dog Dander <0.10 kU/L; E072-IgE Mouse Urine <0.10 kU/L; G002 IgE Bermuda Grass <0.10 kU/L; G006 - IgE Timothy Grass <0.10 kU/L; I006-IgE Cockroach, German <0.10 kU/L; Immunoglobulin E 29 kU/L (<OR=114); M001 IgE Penicillium chrysogen <0.10 kU/L; M002 - IgE Cladosporium herbar <0.10 kU/L; M003 - IgE Aspergillus fumigat <0.10 kU/L; M006 - IgE Alternaria alternat <0.10 kU/L; T001 IgE Maple/Box Elder 0.18 kU/L; T003 IgE Common Silver Birch <0.10 kU/L; T007 - IgE Oak, White <0.10 kU/L; T008 IgE Elm, American <0.10 kU/L; T010 - IgE Walnut <0.10 kU/L; T011 - IgE Maple Leaf Sycamore <0.10 kU/L; T014 - IgE Cottonwood <0.10 kU/L; T015 - IgE Ash, White <0.10 kU/L; T070 - IgE White Mulberry <0.10 kU/L; W001 - IgE Ragweed, Short <0.10 kU/L; W006 - IgE Mugwort <0.10 kU/L; W014 IgE Pigweed, Common <0.10 kU/L; W018 IgE Sheep Sorrel <0.10 kU/L
== END 2025-01-25 11:52 | disposition home or self-care (01) ==
LOC: HO.LAB 11:51
PROVIDERS: PCP Physician Assistant; Visit Provider Physician Assistant
DX: R05.3 Chronic cough (principal)
CPT/HCPCS: 36415; 82785; 86003

== ENCOUNTER 2025-02-05 16:26 | Outpatient (REF) | payer MEDICARE, SELFPAY ==
--- NOTE | ~2025-02-05 | CT_ITS ---
CLINICAL HISTORY: R05.3 - Chronic cough CT chest without contrast Comparison: None Findings: 0.5 cm hypodense right thyroid nodule is present. There is no mediastinal, hilar, or axillary lymphadenopathy. Heart is normal in size. There is no pericardial effusion. Coronary artery calcifications are present. Mild centrilobular emphysema is present. 2 mm right upper lobe nodules (axial images 11 and 33 of series 3) and 3 mm right middle lobe nodule (axial image 38) are present. 2 mm left major fissural lymph node is noted. Limited examination of the upper abdomen demonstrates a 4.0 cm right hepatic hypodensity that is too small to characterize (axial image 55 of series 3). Several hepatic cysts are seen measuring up to 2.5 cm. Additional subcentimeter hepatic hypodensities are too small to characterize. Small layering stones are seen in the gallbladder. Mild degenerative changes are seen in the spine. No acute osseous abnormality is identified. No aggressive lytic or blastic lesion is seen. IMPRESSION: 1. Mild pulmonary emphysema with several small 2-3 mm pulmonary nodules. No follow-up of these nodules is needed. 2. Coronary artery calcifications. 3. 4.0 cm right hepatic hypodense lesion, which is incompletely characterized. Recommend dedicated CT or MRI liver mass protocol for further evaluation. 4. Cholelithiasis. This document has been electronically signed by: Adela Cummins on 02/07/2025 08:50:10
== END 2025-02-05 16:27 | disposition home or self-care (01) ==
LOC: HO.CT 16:26
PROVIDERS: PCP Physician Assistant; Visit Provider Physician Assistant
DX: R05.3 Chronic cough (principal)
CPT/HCPCS: 71250

== ENCOUNTER → 2025-02-05 16:28 | Outpatient (BNV) | payer MEDICARE, SELFPAY | PROVIDERS: PCP Physician Assistant; Visit Provider Radiology Vascular & Interventional Radiology | DX: I25.84 Coronary atherosclerosis due to calcified coronary lesion (principal); R91.8 Other nonspecific abnormal finding of lung field; K80.20 Calculus of gallbladder without cholecystitis without obstruction | CPT/HCPCS: 71250 ==

== ENCOUNTER 2025-03-19 09:49 | Outpatient (REF) | payer MEDICARE, SELFPAY ==
[2025-03-19 11:29] LABS: Anion Gap 13 (12-20); Blood Urea Nitrogen 25 mg/dL (9-16); Calcium 9.6 mg/dL (8.4-10.2); Carbon Dioxide 29 mmol/L (22-29); Chloride 106 mmol/L (96-108); Estimated Glomerular Filt Rate > 60; Glucose Random 91 mg/dL (60-115); Potassium 4.5 mmol/L (3.3-5.1); Sodium 143 mmol/L (135-145)
[2025-03-19 11:52] LABS: Prostate Specific Antigen 7.89 ng/mL (<0.05-4.0)
== END 2025-03-19 09:50 | disposition home or self-care (01) ==
LOC: HO.LAB 09:49
PROVIDERS: Absent Provider Physician Assistant; PCP Physician Assistant; Visit Provider Nurse Practitioner Family
DX: R16.0 Hepatomegaly, not elsewhere classified (principal); N40.0 Benign prostatic hyperplasia without lower urinary tract symptoms; Z12.5 Encounter for screening for malignant neoplasm of prostate
CPT/HCPCS: 36415; 80048; 84153

== ENCOUNTER 2025-03-25 13:50 | Outpatient (REF) | payer MEDICARE, SELFPAY ==
--- NOTE | ~2025-03-25 | CT_ITS ---
EXAMINATION: CT ABDOMEN WITH CONTRAST CLINICAL INFORMATION: Hepatomegaly. 4 cm lesion identified on a recent CT chest. COMPARISON: Correlated to CT chest dated February 05, 2025. TECHNIQUE: Contiguous axial thin section helical images of the abdomen were performed following the administration of oral contrast and 85 mL of Omnipaque 350 intravenous contrast. The data set was reformatted in the coronal and sagittal planes and reviewed on an independent workstation. No reported immediate complications. This CT examination was performed using dose optimization techniques as appropriate, variously including the following: *Automated exposure control *Adjustment of mA and/or kV according to patient size (this includes techniques or standardized protocols for targeted exams where dose is matched to indication/reason for exam; i.e. extremities or head) *Use of iterative reconstruction technique. DLP: 136 mGy centimeter. FINDINGS: The examination is not targeted for liver mass protocol. LUNG BASES: Mild centrilobular emphysematous changes. No acute airspace disease. LIVER, GALLBLADDER, AND BILIARY TREE: Liver measures 14 cm. There are multifocal, well-defined, lobulated, round and ovoid shaped hypodense lesions throughout the liver parenchyma. There is a rather large, 5 x 4 cm heterogeneous peripheral discontinuous enhancing hypodense lesion in the peripheral right hepatic lobe. The portal veins, hepatic veins and intrahepatic portions of the IVC are patent. No intrahepatic or extrahepatic biliary ductal dilatation. There is layering hyperdensity in the gallbladder lumen. No pericholecystic fluid collection or gallbladder wall thickening. PANCREAS: No focal mass. No peripancreatic fluid collection. No main pancreatic ductal dilatation. SPLEEN: 9 cm. No focal lesion. ADRENAL GLANDS AND KIDNEYS: No nodular lesions, adrenal glands. No hydronephrosis. No gross nephrolithiasis. Subcentimeter cystic lesions in the kidneys. BOWEL LOOPS: Abundant stool, large intestine. Collapsed appearance of the splenic colonic flexure and descending colon. Small hiatal hernia.. LYMPH NODES: Nonspecific prominent mesenteric lymph nodes and retroperitoneum. VASCULAR: Calcified plaques abdominal aorta wall the origin of the main renal arteries, superior mesenteric artery and the iliac arteries. No aneurysm or dissection, abdominal aorta. BONES: Multilevel spondylosis and levoconvex curvature of the lower lumbar spine. Decreased intervertebral disc height at L2-3. No acute fracture or gross listhesis Spondylolysis pars interarticularis at L5-S1 resulting in grade 1 anterolisthesis.. Small fat-containing umbilical hernia. CT/CT abdomen w IV con IMPRESSION: Multifocal hepatic lesions suggesting hemangiomata. Cholelithiasis. 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 Nonspecific prominent mesenteric and retroperitoneal lymph nodes. Fleischner guidelines were followed. Electronically signed by: Hasmukh Veliz MD 03/25/2025 03:06 PM EDT
[2025-03-25] MEDS: iohexoL 350 MG/ML 100 ML INFUS..BTL IV (14:33)
== END 2025-03-25 13:51 | disposition home or self-care (01) ==
LOC: HO.CT 13:50
PROVIDERS: PCP Physician Assistant; Visit Provider Physician Assistant
DX: R16.0 Hepatomegaly, not elsewhere classified (principal)
CPT/HCPCS: 74160; Q9967

== ENCOUNTER → 2025-03-25 13:55 | Outpatient (BNV) | payer MEDICARE, SELFPAY | PROVIDERS: PCP Physician Assistant; Visit Provider Radiology Diagnostic Radiology | DX: K80.20 Calculus of gallbladder without cholecystitis without obstruction (principal); K76.9 Liver disease, unspecified; M47.817 Spondylosis without myelopathy or radiculopathy, lumbosacral region | CPT/HCPCS: 74160 ==

== ENCOUNTER 2025-03-26 11:26 | Outpatient (AMB) | payer MEDICARE, SELFPAY ==
--- NOTE | 2025-03-26 11:31 | A.OFFVIS_ITS ---
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 Required: No Accompanied by: Self / Same As Patient Allergies amoxicillin [AMOXICILLIN] Allergy (Severe, Verified 03/26/25 14:23) RASH zoster vaccine live [SHINGLES VACCINE] Allergy (Severe, Verified 03/26/25 14:23) SWELLING AND PAIN metoprolol Adverse Reaction (Severe, Verified 03/26/25 14:23) Nausea finasteride Adverse Reaction (Intermediate, Verified 03/26/25 14:23) tough swelling PEG 3350-KCl-Na Bicarb-NaCl Allergy (Unknown, Uncoded 03/26/25 14:23) Unknown pollen Allergy (Unknown, Uncoded 03/26/25 14:23) Itchy Eyes Medication List - Last Reconciled 03/26/25 by ELHAM Ascencio- dutasteride 0.5 mg PO DAILY 90 days losartan 50 mg PO DAILY 30 days montelukast 10 mg PO DAILY 30 days tamsulosin 0.4 mg PO DAILY 90 days HPI Comments Details: Oren is a very pleasant 75-year-old male patient of Dr. Ellis. He has a PMH of hypertension and hemorrhoids. He presents to the office today for follow-up of his elevated PSA and lower urinary tract symptoms. In discussion with the patient today reports to be doing and feeling well. He reports having discontinued finasteride as he felt this was making him nauseous. He also reports feeling that he had swelling of his tongue. He reports that although he stopped finasteride he does continue to experience these symptoms however not as prominent. We discuss trial of dutasteride verses prostate biopsy verses MRI of the prostate verses surveillance monitoring. Risks and benefits of these interventions were discussed. When asked he does report episodes of nocturia however feels he is self managing independently in does not wish to undergo further treatment options at this time. Recent PSA results were reviewed with the patient today as noted and trended below. Previous workup has included a retroperitoneal ultrasound 04/13 noting bilateral kidneys with no hydronephrosis or renal calculi. Simple 0.7 cm exophytic cyst is seen on the left kidney that requires no imaging follow-up per radiology report. The bladder is well distended and normal. Bladder ureteral jets are demonstrated. Pre void bladder volume is approximately 360 mL. Postvoid bladder volume is approximately 270 mL. The prostate is markedly enlarged with a volume of 135 mL. This impinges on the bladder base. PSAs are as follows: PSAs: 12/09 3.0, 03/13 5.8, 03/14 9.1, 04/13 6.7 % free PSA 33%., 09/13 3.8, 03/15 7.9 We discussed decrease increase in PSA. We discussed further treatment options and risks and benefits of these treatment options. He discusses his new diagnosis of emphysema with his PCP and is awaiting his initial pulmonology consult with Dr. Abad. He otherwise denies urinary urgency, urinary frequency, incontinence, hematuria, dysuria, foul smelling urine, flank pain, fever, and or chills. Discussed potential causes for/ of elevated PSA. He discusses at length losing his approximately 11 years ago to ovarian cancer. He denies any known family history of prostate cancer. In office urinalysis results reviewed with the patient today. PVR 3mL. He otherwise offers no other issues or concerns. [facility] Medical History Essential hypertension Surgical History History of knee surgery History of hemorrhoidectomy Family History Father Prostate cancer Social History Housing: House Alcohol intake: current Alcohol intake frequency: holidays/special occasions only Patient Tobacco Use Status: Never used Tobacco e-Cigarette/Vaping Use: Never Used Second Hand Smoke Exposure: No service: No Current occupational status: retired Cognitive needs: No Hearing needs: No Vision needs: Yes (Glasses) Review of Systems Const All systems reviewed & are unremarkable except as noted in HPI and below Physical Exam Const General: cooperative, healthy appearing, comfortable, no acute distress, well developed, alert and awake Orientation/consciousness: patient oriented x3 Limitations: no limitations HEENT Head: Yes normal to inspection, Yes normocephalic and Yes atraumatic Ears: hearing grossly normal bilaterally Eyes General: appearance normal, both eyes and all related structures Neck Neck: Yes normal visual inspection and Yes trachea midline Chest Chest palpation & inspection: normal inspection of the chest Resp Effort & Inspection: normal respiratory effort and able to speak in complete sentences Cardio Rate: regular rate GI Inspection: Yes normal to inspection General: Yes no CVA tenderness Back/Spine/Pelvis Back: no CVA tenderness Skin General skin exam: no rashes or lesions noted Neuro General: patient oriented x3 Extrem General: Yes normal to inspection Psych Appearance: grossly normal and well kempt Mental Status: mental status grossly normal Speech and movement: Normal speech and movement present and Clear speech present Affect: normal affect Attitude: cooperative Thought process: Normal thought process present Thought content: Normal thought content present Insight: Fair insight present (Psych) Judgement: Fair judgement present (Psych) Office Procedures Post Void Residual Post Residual Void Post Void Residual (PVR): 3 [id number]-Wzgi Void Residual by ultrasound Results AMB Urinalysis, Automated UA Leukoctes 0 Leora/uL Last Edit by Gesplan on 03/26/25 11:55 UA Nitrite Last Edit by Gesplan on 03/26/25 11:55 UA Urobilinogen 0.2 mg/dL Last Edit by Gesplan on 03/26/25 11:55 UA Protein 0 mg/dL Last Edit by Gesplan on 03/26/25 11:55 UA pH 6.5 Last Edit by Gesplan on 03/26/25 11:55 UA Blood 0 Colby/uL Last Edit by Gesplan on 03/26/25 11:55 UA Specific [place] 1.010 Last Edit by Gesplan on 03/26/25 11:55 UA Ketone Last Edit by Gesplan on 03/26/25 11:55 UA Bilirubin 0 mg/dL Last Edit by Gesplan on 03/26/25 11:55 UA Glucose 0 mg/dL Last Edit by Joel Michelle on 03/26/25 11:55 Results Reviewed Results Reviewed: Laboratory Last Values Urine pH (Auto) 6.5 03/26/25 11:53 Specific [place] (Auto) 1.010 03/26/25 11:53 Urine Protein (Auto) 0 mg/dL 03/26/25 11:53 Glucose (UA)(Auto) 0 mg/dL 03/26/25 11:53 Urine Blood (Auto) 0 [place]/uL 03/26/25 11:53 Urine Bilirubin (Auto) 0 mg/dL 03/26/25 11:53 Urine Urobilinogen (Auto) 0.2 mg/dL 03/26/25 11:53 Leukocyte Esterase (Auto) 0 Leora/uL 03/26/25 11:53 Assessment & Plan Assessment & Plan (1) Enlarged prostate: Code(s): N40.0 - Benign prostatic hyperplasia without lower urinary tract symptoms Category: Medical (2) Elevated PSA: Code(s): R97.20 - Elevated prostate specific antigen [PSA] Category: Medical Plan In office urinalysis results with the patient today; as noted above. PVR 3 mL. Recent PSA results reviewed with the patient today as noted and trended below. Start dutasteride as discussed and prescribed. We discussed potential causes of elevated PSA as well as further treatment options and risks and benefits of these treatment options. Stop finasteride. He currently denies any bothersome urinary issues or concerns. He reports be happy with current voiding parameters. Will obtain PSA in 3-4 months. Follow-up in 3-4 months with PSA; or sooner with any issues, concerns, and or questions. Orders: Orders AMB Post Void Residual by ultrasound Today N40.0 - Benign prostatic hyperplasia without lower urinary tract symptoms AMB Urinalysis Automated Today Z13.9 - Encounter for screening, unspecified Medications: New dutasteride 0.5 mg PO DAILY 90 caps 1RF 90 days N13.8 - Other obstructive and reflux uropathy, N40.1 - Benign prostatic hyperplasia with lower urinary tract symptoms Patient Instructions: The patient had an opportunity to ask questions regarding the treatment plan. All questions were answered. Physical exam, labs, and imaging were discussed and reviewed in detail. As well as risks, benefits, and discussion of treatment choices. No major barriers to understanding were identified. The patient expressed understanding and agreement with the above treatment plan. The patient was made aware they should contact our office by phone for worsening of their current condition, the appearance of new symptoms, or with any questions or concerns. Compliance is encouraged with any medications and follow up testing that is ordered. It is a privilege to be allowed the opportunity to participate in? your urological care.? Again, if you have any questions or concerns If you have any questions or concerns please do not hesitate to contact me. The office is [phone]. This note is constructed using voice recognition software. While every effort has been made to ensure accuracy coat examiner errors may have been included. Yours sincerely, DANAE Ascencio Coding Level of Care Code Est Pt Level 4 (90802) Diagnoses Enlarged prostate N40.0 Elevated PSA R97.20 CPT Codes Post Residual Void - PVR CPT Code: 00428-Soio Void Residual by ultrasound ([id number])
== END 2025-03-26 12:21 | disposition home or self-care (01) ==
LOC: HO.HUSH 11:26
PROVIDERS: PCP Physician Assistant; Visit Provider Nurse Practitioner Family
DX: N40.0 Benign prostatic hyperplasia without lower urinary tract symptoms (principal); R97.20 Elevated prostate specific antigen [PSA]; Z13.9 Encounter for screening, unspecified
CPT/HCPCS: 99214

== ENCOUNTER → 2025-03-26 11:26 | Outpatient (BNVA) | payer MEDICARE, SELFPAY | PROVIDERS: PCP Physician Assistant; Visit Provider Nurse Practitioner Family | DX: N40.0 Benign prostatic hyperplasia without lower urinary tract symptoms (principal); R97.20 Elevated prostate specific antigen [PSA] | CPT/HCPCS: 51798; 81003; 99212 ==

== ENCOUNTER 2025-04-29 11:05 | Outpatient (AMB) | payer MEDICARE, SELFPAY ==
--- NOTE | 2025-04-29 11:34 | MHC.PC.OV ---
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 Required: No Accompanied by: Self / Same As Patient Allergies amoxicillin [AMOXICILLIN] Allergy (Severe, Verified 04/29/25 11:48) RASH zoster vaccine live [SHINGLES VACCINE] Allergy (Severe, Verified 04/29/25 11:48) SWELLING AND PAIN metoprolol Adverse Reaction (Severe, Verified 04/29/25 11:48) Nausea finasteride Adverse Reaction (Intermediate, Verified 04/29/25 11:48) tough swelling PEG 3350-KCl-Na Bicarb-NaCl Allergy (Unknown, Uncoded 04/29/25 11:48) Unknown pollen Allergy (Unknown, Uncoded 04/29/25 11:48) Itchy Eyes Medication List - Last Reconciled 04/29/25 by Ramiro Ellis PA-C dutasteride 0.5 mg PO DAILY 90 days losartan 50 mg PO DAILY 30 days montelukast 10 mg PO DAILY 30 days tamsulosin 0.4 mg PO DAILY 90 days Tobacco use date assessed: 04/29/25 Fall risk assessment: No Falls in past year Last assessed Fall Risk: 04/29/25 Dental Screening Dental Screen Date: 04/29/25 Did you have a dental visit in the last 12 months?: Yes Did you have a dental problem in the last 6 months where you did not have access to dental care?: No Was dental information given to patient?: Patient has dentist HPI 3 month f/u HPI Details Patient is a 75 year male here today for follow-up visit Patient has a past medical history significant for essential hypertension, emphysema and elevated PSA. Emphysema: Recent CT chest showing evidence of emphysema > history included a 10-12 month history of a cough presenting after having a COVID infection February 2024. 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 He has tried [id number] cough cold medications though have not been effective. Patient has been started on montelukast and reports he has been about 80% better. He has upcoming appointment with pulmonology for further investigation of COPD. --> recently noted to have right inguinal hernia and has upcoming appointment with general surgeon about surgical fix. .. BPH-> continues to have elevated PSA. Does have a brother with prostate cancer. He has establish with [facility] and his finasteride was switch to dutasteride and feels it is working better for him. .. Hypertension: blood pressure stable today in office. Patient continues on losartan with good effect on his blood pressure. Laboratory Tests 04/19/24 09/18/24 03/19/25 09:38 09:53 10:13 Creatinine 1.01 Total PSA 3.79 Total PSA (off-sit e) 6.7 H Prostate Specific Ag 7.89 H [facility] Medical History Essential hypertension Surgical History History of knee surgery History of hemorrhoidectomy Family History Father Prostate cancer Social History Housing: House Alcohol intake: current Alcohol intake frequency: holidays/special occasions only Patient Tobacco Use Status: Never used Tobacco e-Cigarette/Vaping Use: Never Used Second Hand Smoke Exposure: No service: No Current occupational status: retired Cognitive needs: No Hearing needs: No Vision needs: Yes (Glasses) Questionnaire PHQ-9 Over the last 2 weeks, how often have you been bothered by any of the following problems? 1. Little interest or pleasure in doing things: not at all 2. Feeling down, depressed, or hopeless: not at all 3. Trouble falling or staying asleep, or sleeping too much: not at all 4. Feeling tired or having little energy: not at all 5. Poor appetite or overeating: not at all 6. Feeling bad about yourself - or that you are a failure or have let yourself or your family down: not at all 7. Trouble concentrating on things, such as reading the newspaper or watching television: not at all 8. Moving or speaking so slowly that other people could have noticed. Or the opposite - being so fidgety or restless that you have been moving around a lot more than usual: not at all 9. Thoughts that you would be better off or of hurting yourself in some way: not at all Total score: 0 Depression Screening Interpretation: Negative Depression Screening Done: Yes 76730 - PHQ-9 Billing: Yes Source: Developed by Drs. Bryce Burton, Lynette Dietz, Darshan Porter and colleagues, with an educational sandee from [employer]. Thrive Questionnaire Date Thrive assessed: 04/29/25 I am a: Patient What is your living situation today?: I have a steady place to live Within the past 12 months, did the food you bought not last and you didn't have the money to get more?: Never true Within the past 12 months, did you worry whether your food would run out before you got money to buy more?: Never true Do you have trouble paying for medicines?: No Do you have trouble getting transportation to medical appointments?: No Do you have trouble paying your heating and electricity bill?: No Do you have trouble taking care of your child, family member or friend?: No Do you have trouble with day-to-day activities such as bathing, preparing meals, shopping, managing finances, etc.?: No Are you currently unemployed and looking for a job?: No Are you interested in more education?: No Please select the resources that you would like help with: None Currently or been in a relationship where the following occur: I choose not to answer THRIVE Score: 0 AUDIT C Alcohol Use Questionnaire (AUDIT-C) 1. How often do you have a drink containing alcohol?: 2-4 times a month 2. How many drinks containing alcohol do you have on a typical day when you are drinking?: 1 or 2 3. How often do you have six or more drinks on one occasion?: Never Total Score: 2 Score Reviewed/Action Taken: Yes AMBERLY-7 AMB Questionnaire AMBERLY-7 Date AMBERLY - 7 assessed: 04/29/25 Feeling nervous, anxious, or on edge: 0 = Not at all Not being able to stop or control worryin = Not at all Worrying too much about different things: 0 = Not at all Trouble relaxin = Not at all Being so restless that it is hard to sit still: 0 = Not at all Becoming easily annoyed or irritable: 0 = Not at all Feeling afraid as if something awful might happen: 0 = Not at all Total AMBERLY-7 score (0-4 normal; 5-9 mild; 10-14 moderate; 15-21 severe): 0 Source: Developed by Drs. Bryce Burton, Lynette Dietz, Darshan Porter and colleagues, with an educational sandee from [employer]. AMBERLY-7 Assessment Billing AMBERLY-7 Assessment Tool: AMBERLY-7 Assessment 29906 Review of Systems Const Denies headache(s) Eyes Denies loss of vision ENT Denies vertigo, Denies dizziness, Denies headache(s) and Denies sore throat Card Denies chest pain, Denies leg edema and Denies lightheadedness Resp Denies cough, Denies hemoptysis and Denies wheezing GI Denies abdominal pain, Denies melena, Denies constipation, Denies diarrhea and Denies vomiting Denies dysuria, Denies urinary frequency and Denies urinary urgency Musc Denies arthralgias, Denies joint swelling, Denies numbness and Denies tingling Neuro Denies Abnormal speech present, Denies behavioral changes, Denies vertigo, Denies dizziness, Denies headache(s), Denies loss of vision, Denies memory loss, Denies numbness and Denies tingling Psych Denies anxiety, Denies behavioral changes, Denies depression, Denies memory loss and Denies panic attacks Vincenzo/Lymph Denies easy bleeding and Denies easy bruising Aller/Immun Denies wheezing Physical exam (Primary Care) Vital Signs: Last Vital Signs Temp 97.1 F 04/29/25 11:35 Pulse 57 04/29/25 11:35 BP 116/54 L 04/29/25 11:35 Pulse Ox 97 04/29/25 11:35 Oxygen Delivery Method Room Air 04/29/25 11:35 BMI result Body Mass Index 25.6 Tobacco/Smoking Status: Tobacco use Status Tobacco use date assessed 04/29/25 04/29/25 11:46 Patient Tobacco Use Status Never used Tobacco 04/29/25 11:46 e-Cigarette/Vaping Use Never Used 04/29/25 11:46 PHQ-9: PHQ-9 Score PHQ-9: Total score 0 04/29/25 11:50 Depression Screening Interpretation: Negative Thrive Assessment: Date of Thrive Assessment Date Thrive assessed 04/29/25 04/29/25 11:46 Currently or been in a relationship where the following occur: I choose not to answer Const General: healthy appearing, no acute distress, alert and awake Nutritional Appearance: well nourished Orientation/consciousness: oriented to person, oriented to place and oriented to time HENMT Ears: TM's normal bilaterally General nose exam: Normal nasal mucous membranes and turbinates present Eyes Conjunctivae: conjunctivae normal Sclerae: sclerae normal Pupils: Equal, round and reactive pupils present Neck Neck: Yes no lymphadenopathy and Yes no JVD Thyroid: Thyroid normal Carotids: no bruits Resp Effort & Inspection: normal respiratory effort and not tachypneic Auscultation: no crackles, no rales, no rhonchi and no wheezes Cardio Rate: regular rate Rhythm: regular rhythm Heart sounds: no murmurs and normal S1 and S2 GI Palpation (GI): Soft to palpation, nontender, no hepatomegaly and no splenomegaly Auscultation: normal bowel sounds Skin General skin exam: no rashes or lesions noted and dry skin Neuro General: oriented to person, oriented to place and oriented to time Cranial nerves: Yes Equal, round and reactive pupils present Speech: No Abnormal speech present Gait exam (Neuro): Normal gait present Motor exam (neuro): no tremor noted Extrem Right upper extremity: full ROM Left upper extremity: full ROM Right lower extremity: full ROM; no edema Left lower extremity: full ROM; no edema Psych Mental Status: mental status grossly normal Speech and movement: Normal speech and movement present Affect: normal affect Attitude: cooperative Thought process: Normal thought process present Coding Level of Care Code Est Pt Level 4 (92807) Diagnoses Essential hypertension I10 Centrilobular emphysema J43.2 Emphysema type: centrilobular Elevated PSA R97.20 Additional Codes AMBERLY-7 Assessment Billing - AMBERLY-7 Assessment Tool: AMBERLY-7 Assessment 35125 ([id number]) PHQ-9 - 75392 - PHQ-9 Billing: Yes ([id number]) Assessment & Plan Assessment & Plan (1) Essential hypertension: Code(s): I10 - Essential (primary) hypertension Category: Medical Plan: Patient's blood pressure acceptable today in office. Will continue her current dose losartan with goal blood pressure to remain below 140/90 (2) Emphysema lung: Code(s): J43.9 - Emphysema, unspecified Category: Medical Qualifiers: Emphysema type: centrilobular Qualified Code(s): J43.2 - Centrilobular emphysema Plan: There is a plan for pulmonary testing such as a pulmonary function test. Continuation of Singulair and potential review for a maintenance inhaler if symptoms progress. Further evaluation by a doper operator is arranged. (3) Elevated PSA: Code(s): R97.20 - Elevated prostate specific antigen [PSA] Category: Medical Plan: Continue Urology follow-up. Continues on tamsulosin and dutasteride. He does have a family history of prostate cancer PSA recently has 7.8 from 3.7. Orders: Orders Complete Blood Count no Diff 04/29/25 I10 - Essential (primary) hypertension Comprehensive [place]. Panel Fast 04/29/25 I10 - Essential (primary) hypertension
[2025-04-29 11:35] VITALS: BP 116/54; PULSE 57; TEMP 36.2; O2SAT 97; BMI 25.6
== END 2025-04-29 12:15 | disposition home or self-care (01) ==
LOC: HO.HMCH 11:06
PROVIDERS: PCP Physician Assistant; Visit Provider Physician Assistant
DX: I10 Essential (primary) hypertension (principal); J43.2 Centrilobular emphysema; R97.20 Elevated prostate specific antigen [PSA]

== ENCOUNTER → 2025-04-29 11:05 | Outpatient (BNVA) | payer MEDICARE, SELFPAY | PROVIDERS: PCP Physician Assistant; Visit Provider Physician Assistant | DX: I10 Essential (primary) hypertension (principal); J43.2 Centrilobular emphysema; R97.20 Elevated prostate specific antigen [PSA] | CPT/HCPCS: 96127; 99212 ==

== ENCOUNTER 2025-05-07 13:22 | Outpatient (AMB) | payer MEDICARE, SELFPAY ==
[2025-05-07 13:27] VITALS: BP 120/72; PULSE 71; O2SAT 98; BMI 25.7
--- NOTE | 2025-05-07 13:27 | A.OFFVIS_ITS ---
Vital Signs 05/07/25 13:27 Height 5 ft 7 in Weight 164 lb 3.91 oz BMI 25.7 BP 120/72 Blood Pressure Location Lt brachial Position Sitting Pulse 71 Pulse Source Pulse Oximeter Pulse Oximetry (%) 98 Oxygen Delivery Method Room Air Intake Visit Reasons: Emphysema Rn Peritoneal Dialysis Required: No Accompanied by: Self / Same As Patient Allergies amoxicillin [AMOXICILLIN] Allergy (Severe, Verified 05/07/25 13:33) RASH zoster vaccine live [SHINGLES VACCINE] Allergy (Severe, Verified 05/07/25 13:33) SWELLING AND PAIN latex Allergy (Intermediate, Verified 05/07/25 13:33) Rash metoprolol Adverse Reaction (Severe, Verified 05/07/25 13:33) Nausea finasteride Adverse Reaction (Intermediate, Verified 05/07/25 13:33) tough swelling PEG 3350-KCl-Na Bicarb-NaCl Allergy (Unknown, Uncoded 04/29/25 11:48) Unknown pollen Allergy (Unknown, Uncoded 04/29/25 11:48) Itchy Eyes HPI Comments Details: The patient is here for pulmonary evaluation. The patient is a 75-year-old gentleman presenting with a symptom of cough. The patient states that his cough since be productive in nature with yellowish phlegm. Moderate severity. He did see his primary care doctor he was given nasal spray in addition to some doxycycline although the patient did not take the antibiotics. He does take the nasal spray as needed. In addition to that he was given inhaler that he has not used. Ultimately underwent a CT scan of the chest in January 2025 which I personally reviewed. There was mentioned of emphysema. I had a hard time finding too much emphysema although very mild. The patient also had what appeared to be bronchogenic cysts bilaterally. It all appears to be benign. He does have multiple nodules subcentimeter in size that will need follow-up. 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 There was also a past history of smoking. Ultimately the patient was concerned about the finding of emphysema and he was then referred to Pulmonary. Overall he is doing good from a respiratory status except for the cough. On exam definitely has a component of postnasal drip with significant nasal congestion and what appears to be purulent secretions and emphysema of the posterior pharynx. His CT scan which was personally by me again demonstrated the cyst take areas and also the mild emphysema in addition to that has a dilated esophagus. On further questioning the patient does state that he has sometimes difficulty swallowing some sometimes heartburn. He does take [id number] medications. Therefore this point will go ahead and do PFTs. He will have another CAT scan in January of 2026. Can consider doing a barium swallow but for now will hold off the patient will start a reflux diet and will sleep elevated. [facility] Medical History (Updated 05/07/25 @ 21:25 by Garret Abad MD) Chronic rhinitis Sinusitis Pulmonary nodules Essential hypertension Surgical History History of knee surgery History of hemorrhoidectomy Family History Father Prostate cancer Social History Housing: House Alcohol intake: current Alcohol intake frequency: holidays/special occasions only Patient Tobacco Use Status: Never used Tobacco e-Cigarette/Vaping Use: Never Used Second Hand Smoke Exposure: No service: No Current occupational status: retired Cognitive needs: No Hearing needs: No Vision needs: Yes (Glasses) Review of Systems Const Denies headache(s) Eyes Denies loss of vision ENT Denies vertigo, Denies dizziness, Denies headache(s) and Denies sore throat Card Denies chest pain, Denies leg edema and Denies lightheadedness Resp Reports change in phlegm color, Reports cough, Denies hemoptysis, Reports excessive phlegm production and Denies wheezing GI Denies abdominal pain, Denies melena, Denies constipation, Denies diarrhea and Denies vomiting Denies dysuria, Denies urinary frequency and Denies urinary urgency Musc Denies arthralgias, Denies joint swelling, Denies numbness and Denies tingling Neuro Denies Abnormal speech present, Denies behavioral changes, Denies vertigo, Denies dizziness, Denies headache(s), Denies loss of vision, Denies memory loss, Denies numbness and Denies tingling Psych Denies anxiety, Denies behavioral changes, Denies depression, Denies memory loss and Denies panic attacks Vincenzo/Lymph Denies easy bleeding and Denies easy bruising Aller/Immun Denies wheezing Physical Exam Vital Signs: Last Vital Signs Pulse 71 05/07/25 13:27 BP 120/72 05/07/25 13:27 Pulse Ox 98 05/07/25 13:27 Oxygen Delivery Method Room Air 05/07/25 13:27 BMI result Body Mass Index 25.7 Const General: comfortable HEENT Throat: Yes posterior oropharynx abnormal, Yes postnasal drainage and Yes cobblestoning Eyes General: appearance normal, both eyes and all related structures Neck Neck: Yes supple Chest Chest palpation & inspection: normal inspection of the chest Resp Effort & Inspection: normal respiratory effort Auscultation: clear to auscultation bilaterally Cardio Rate: regular rate Heart sounds: S1 normal heart sound present and S2 normal heart sound present GI Palpation (GI): Soft to palpation Skin General skin exam: no rashes or lesions noted Neuro Speech: No Abnormal speech present Extrem General: Yes no clubbing, cyanosis or edema Assessment & Plan Assessment & Plan (1) Emphysema lung: Comment: very mild, some areas likely pneumonic cysts Code(s): J43.9 - Emphysema, unspecified Category: Medical Qualifiers: Emphysema type: centrilobular Qualified Code(s): J43.2 - Centrilobular emphysema (2) Pulmonary nodules: Code(s): R91.8 - Other nonspecific abnormal finding of lung field Category: Medical (3) Sinusitis: Code(s): J32.9 - Chronic sinusitis, unspecified Category: Medical Qualifiers: Sinusitis location: unspecified location Chronicity: subacute Qualified Code(s): J01.90 - Acute sinusitis, unspecified (4) Chronic rhinitis: Code(s): J31.0 - Chronic rhinitis Category: Medical Plan start Doxycycline x 14 days Fluticasone nasal spray AM consider sinus rinse with distilled saline PFTs Repeat CT chest 01/2026 consider barium swallow F/U 3 months Orders: Orders CT chest wo IV con 01/21/26 R91.8 - Other nonspecific abnormal finding of lung field PFT pulmonary function test Today J43.2 - Centrilobular emphysema Medications: New doxycycline hyclate 100 mg PO BID 14 days 28 caps 0RF Coding Level of Care Code New Pt Level 4 (17271) Diagnoses Centrilobular emphysema J43.2 Emphysema type: centrilobular Pulmonary nodules R91.8 Subacute sinusitis, unspecified location J01.90 Sinusitis location: unspecified location Chronicity: subacute Chronic rhinitis J31.0 Time Spent (min) 40
== END 2025-05-07 14:11 | disposition home or self-care (01) ==
LOC: HO.HPS 13:23
PROVIDERS: PCP Physician Assistant; Visit Provider Hospitalist
DX: J43.2 Centrilobular emphysema (principal); R91.8 Other nonspecific abnormal finding of lung field; J01.90 Acute sinusitis, unspecified; J31.0 Chronic rhinitis
CPT/HCPCS: 99204

== ENCOUNTER → 2025-05-07 13:22 | Outpatient (BNVA) | payer MEDICARE, SELFPAY | PROVIDERS: PCP Physician Assistant; Visit Provider Hospitalist | DX: J43.2 Centrilobular emphysema (principal); J31.0 Chronic rhinitis; J01.90 Acute sinusitis, unspecified; R91.8 Other nonspecific abnormal finding of lung field | CPT/HCPCS: 99202 ==

== ENCOUNTER 2025-06-21 08:36 | Outpatient (REF) | payer MEDICARE, SELFPAY ==
--- OUTSIDE RECORDS SUMMARY | 2025-06-21 08:46 | XMS_ITS | Clinical Summary ---
Author Organization [facility] Address [address] [place] [id number] Phone Care Team Providers Care Fuel House Attendant Name Role Phone Ramiro Ellis Primary Care Provider + Allergies Active Allergy Reactions Criticality Noted Date Comments Amoxicillin 02/13/2024 Latex, Natural Rubber 01/31/2022 Pollen Extracts 01/31/2022 Medications losartan (COZAAR) 50 MG tablet Take 1 tablet by mouth every morning. 02/28/2024 Active cetirizine (ZYRTEC) 5 MG chewable tablet Take 5 mg by mouth daily. Active Active Problems No known active problems Social History Tobacco Use Types Packs/Day Years Used Date Smoking Tobacco: Never Smokeless Tobacco: Never Tobacco Cessation:Counseling Given: Not Answered Alcohol Use Standard Drinks/Week Comments Not Currently 0 (1 standard drink = 0.6 oz pur e alcohol) Education Answer Date Recorded Are you interested in more education? Not on sylvia e 03/18/2023 Are you concerned about learning? Not on file 03/18/2023 No 03/18/2023 No 03/18/2023 Digital Access Answer Date Recorded No 04/16/2023 No 04/16/2023 Reliable internet access at home? Not on file 04/16/2023 Device with a working camera? Not on file Intimate Partner Violence Answer Date R ecorded Are you denied basic needs s uch as food, clothing, or medical care? No 02/13/2024 In the past 12 months have y ou been in a relationship with a person who hurts, threatens, or tries to control you? No 02/13/2024 Are you denied basic needs s uch as food, clothing, or medical care? No 02/13/2024 In the past 12 months have y ou been in a relationship with a person who hurts, threatens, or tries to control you? No 02/13/2024 Sex and Gender Information Value Date Recorded Sex Assigned at Not on file Legal Sex Male 10:01 PM EDT Gender Identity Not on file Sexual Orientation Not on file Last Filed Vital Signs Vital Sign Reading Time Taken Comments Blood Pressure 154/102 03/05/2024 2:36 PM EDT Pulse 77 02/13/2024 3:54 PM EDT Temperature 36.8 C (98.3 F) 03/05/2024 2:36 PM EDT Respiratory Rate 22 03/05/2024 2:36 PM EDT Oxygen Saturation 98% 03/05/2024 2:36 PM EDT Inhaled Oxygen Concentration - - Weight 71.7 kg (158 lb) 03/05/2024 2:36 PM EDT Height 168.9 cm (5' 6.5 ) 03/05/2024 2:36 PM EDT Body Mass Index 25.12 03/05/2024 2:36 PM EDT Plan of Treatment Health Maintenance Due Date Last Done Comments Adult Td,Tdap Booster 1951 CREATININE LEVEL 1951 LIPID PANEL 1951 POTASSIUM LEVEL 1951 DEPRESSION SCREENING 1963 HEPATITIS C SCREENING 1969 COLOGUARD 1996 COLONOSCOPY 1996 COLORECTAL CANCER SCREENING 1996 FIT TEST 1996 FOBT 1996 SIGMOIDOSCOPY 1996 VIRTUAL COLONOSCOPY 1996 PNEUMOCOCCAL VACCINES (50+ years) (2 of 2 - PCV) 01/10/2020 01/10/2019 COVID-19 VACCINE ( - season) 2024 02/17/2022, 10/24/2021, 03/04/2021, Additional history exists RSV VACCINE (1 - 1-dose 75+ series) 2026 ZOSTER VACCINES Completed 07/10/2019, 02/10/2019 SMOKING STATUS SCREENING (Once After 26 Yrs) Completed 03/05/2024 HEPATITIS A VACCINES Aged Out No long er eligible based on patient's age to complete this topic HIB VACCINES Aged Out No longer eligi ble based on patient's age to complete this topic MENINGOCOCCAL VACCINES (ACWY) Aged Out No longer eligible based on patient's age to complete this topic MENINGOCOCCAL VACCINES (B) Aged Out N o longer eligible based on patient's age to complete this topic Medical Devices Not on file Insurance [employer] SUPPLEMENT MEDICARE PART A & B [employer] MEDICARE PART A & B [employer] MEDICARE PART A & B [employer] MEDICARE PART A & B [employer] MEDICARE PART A & B [employer] SU[employer] MEDICARE PART A & B [employer] MED[employer] SUPPLEMENT MEDICARE PART A & B [employer] MEDEX SUPPLEMENT MEDICARE PART A & B [employer] MEDEX SUPPLEMENT MEDICARE PART A & B Care Teams Fuel House Attendant Relationship Specialty Start Date End Date Ramiro Ellis PA [address] [place] [address] PCP - General Physician 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 It is not the complete legal health record.[facility]
[2025-06-21 09:35] LABS: Prostate Specific Antigen 4.51 ng/mL (<0.05-4.0)
== END 2025-06-21 08:37 | disposition home or self-care (01) ==
LOC: HO.LAB 08:36
PROVIDERS: PCP Physician Assistant; Visit Provider Nurse Practitioner Family
DX: R97.20 Elevated prostate specific antigen [PSA] (principal)
CPT/HCPCS: 36415; 84153

== ENCOUNTER 2025-06-27 11:44 | Outpatient (AMB) | payer MEDICARE, SELFPAY ==
--- NOTE | 2025-06-27 11:49 | A.OFFVIS_ITS ---
Intake Visit Reasons: 3m/PSA Intake Note: Patient is present for 3M/PSA Urology Medication:TAMSULOSIN,DUTASTERIDE Antibiotic Allergy:AMOXICILLIN Blood Thinner:NONE Grant Coordinator Required: No Allergies amoxicillin (AMOXICILLIN) Allergy (Severe, Verified 06/27/25 13:02) RASH zoster vaccine live (SHINGLES VACCINE) Allergy (Severe, Verified 06/27/25 13:02) SWELLING AND PAIN latex Allergy (Intermediate, Verified 06/27/25 13:02) Rash metoprolol Adverse Reaction (Severe, Verified 06/27/25 13:02) Nausea finasteride Adverse Reaction (Intermediate, Verified 06/27/25 13:02) tough swelling PEG 3350-KCl-Na Bicarb-NaCl Allergy (Unknown, Uncoded 06/27/25 13:02) Unknown pollen Allergy (Unknown, Uncoded 06/27/25 13:02) Itchy Eyes Medication List - Last Reconciled 06/27/25 by ELHAM Ascencio- albuterol sulfate 90 mcg/actuation 2 puffs inhalation Q6H PRN cetirizine (Zyrtec) 10 mg PO DAILY PRN 90 days dutasteride 0.5 mg PO DAILY 90 days fluticasone propionate 50 mcg/actuation (Flonase Allergy Relief) 1 spray intranasal DAILY losartan 50 mg PO DAILY 30 days montelukast 10 mg PO DAILY 30 days tamsulosin 0.4 mg PO DAILY 90 days HPI Comments Details: Oren is a very pleasant 75-year-old male patient of Dr. Ellis. He has a PMH of hypertension and hemorrhoids. He presents to the office today for follow-up of his elevated PSA and lower urinary tract symptoms. In discussion with the patient today reports to be doing and feeling well. He reports compliance with dutasteride as prescribed. Previously patient had been on finasteride however felt this caused tongue swelling as well as nausea and therefore was switched to dutasteride. Recent PSA results with the patient today as noted and trended below. Previous workup has included a retroperitoneal ultrasound 04/13 noting bilateral kidneys with no hydronephrosis or renal calculi. Simple 0.7 cm exophytic cyst is seen on the left kidney that requires no imaging follow-up per radiology report. The bladder is well distended and normal. Bladder ureteral jets are demonstrated. Pre void bladder volume is approximately 360 mL. Postvoid bladder volume is approximately 270 mL. The prostate is markedly enlarged with a volume of 135 mL. This impinges on the bladder base. PSAs are as follows: PSAs: 12/09 3.0, 03/13 5.8, 03/14 9.1, 04/13 6.7 % free PSA 33%., 09/13 3.8, 03/15 7.9, 07/15 4.5 We discuss decrease in PSA. We discussed further treatment options and risks and benefits of these treatment options. He otherwise denies urinary urgency, urinary frequency, incontinence, hematuria, dysuria, foul smelling urine, flank pain, fever, and or chills. Discussed potential causes for/ of elevated PSA. He denies any known family history of prostate cancer. In office urinalysis results reviewed with the patient today. He otherwise offers no other issues or concerns. [facility] Medical History Chronic rhinitis Sinusitis Pulmonary nodules Essential hypertension Surgical History History of knee surgery History of hemorrhoidectomy Family History Father Prostate cancer Social History Housing: House Alcohol intake: current Alcohol intake frequency: holidays/special occasions only Patient Tobacco Use Status: Never used Tobacco e-Cigarette/Vaping Use: Never Used Second Hand Smoke Exposure: No service: No Current occupational status: retired Cognitive needs: No Hearing needs: No Vision needs: Yes (Glasses) Review of Systems Const All systems reviewed & are unremarkable except as noted in HPI and below Physical Exam Const General: cooperative, healthy appearing, comfortable, no acute distress, well developed, alert and awake Orientation/consciousness: patient oriented x3 Limitations: no limitations HEENT Head: Yes normal to inspection, Yes normocephalic and Yes atraumatic Ears: hearing grossly normal bilaterally Eyes General: appearance normal, both eyes and all related structures Neck Neck: Yes normal visual inspection and Yes trachea midline Chest Chest palpation & inspection: normal inspection of the chest Resp Effort & Inspection: normal respiratory effort and able to speak in complete sentences Cardio Rate: regular rate GI Inspection: Yes normal to inspection General: Yes no CVA tenderness Back/Spine/Pelvis Back: no CVA tenderness Skin General skin exam: no rashes or lesions noted Neuro General: patient oriented x3 Extrem General: Yes normal to inspection Psych Appearance: grossly normal and well kempt Mental Status: mental status grossly normal Speech and movement: Normal speech and movement present and Clear speech present Affect: normal affect Attitude: cooperative Thought process: Normal thought process present Thought content: Normal thought content present Insight: Fair insight present (Psych) Judgement: Fair judgement present (Psych) Results AMB Urinalysis, Automated UA Leukoctes 0 Leora/uL Last Edit by Rin Olmstead CCM on 06/27/25 11:59 UA Nitrite Negative Last Edit by Rin Olmstead CCM on 06/27/25 11:59 UA Urobilinogen 0.2 mg/dL Last Edit by Rin Olmstead CCM on 06/27/25 11:5 9 UA Protein 15 mg/dL Last Edit by Rin Olmstead [facility] on 06/27/25 11:59 UA pH 6.0 Last Edit by Rin Olmstead [facility] on 06/27/25 11:59 UA Blood 0 Colby/uL Last Edit by Rin Olmstead CCM on 06/27/25 11:59 UA Specific Sarita 1.015 Last Edit by Rin Olmstead CCM on 06/27/25 11: 59 UA Ketone Negative Last Edit by Rin Olmstead CCM on 06/27/25 11:59 UA Bilirubin 0 mg/dL Last Edit by Rin Olmstead [facility] on 06/27/25 11:59 UA Glucose 0 mg/dL Last Edit by Rin Olmstead [facility] on 06/27/25 11:59 Results Reviewed Results Reviewed: Laboratory Last Values Urine pH (Auto) 6.0 06/27/25 11:58 Specific Sarita (Auto) 1.015 06/27/25 11:58 Urine Protein (Auto) 15 mg/dL 06/27/25 11:58 Glucose (UA)(Auto) 0 mg/dL 06/27/25 11:58 Urine Ketones (Auto) Negative 06/27/25 11:58 Urine Blood (Auto) 0 Colby/uL 06/27/25 11:58 Urine Nitrite (Auto) Negative 06/27/25 11:58 Urine Bilirubin (Auto) 0 mg/dL 06/27/25 11:58 Urine Urobilinogen (Auto) 0.2 mg/dL 06/27/25 11:58 Leukocyte Esterase (Auto) 0 Leora/uL 06/27/25 11:58 Assessment & Plan Assessment & Plan (1) Elevated PSA: Code(s): R97.20 - Elevated prostate specific antigen [PSA] Category: Medical (2) Enlarged prostate: Code(s): N40.0 - Benign prostatic hyperplasia without lower urinary tract symptoms Category: Medical Plan In office urinalysis results reviewed with the patient today; as noted above. Recent PSA results reviewed with the patient today; as noted above. He currently denies any bothersome urinary issues or concerns. He reports be happy with current voiding parameters. We did discussed significant decrease in PSA however we also discussed potential causes of elevated PSA as well as further treatment options and risks and benefits of these treatment options. Will continue with surveillance monitoring. Continue dutasteride as discussed and prescribed. Will obtain PSA in 4 months. Follow-up in 4 months with PSA; or sooner with any issues, concerns, and or questions. Orders: Orders AMB Urinalysis Automated Today Z13.9 - Encounter for screening, unspecified PSA,Total (Free>4and<10) Today N40.0 - Benign prostatic hyperplasia without lower urinary tract symptoms, R97.20 - Elevated prostate specific antigen [PSA] Patient Instructions: The patient had an opportunity to ask questions regarding the treatment plan. All questions were answered. Physical exam, labs, and imaging were discussed and reviewed in detail. As well as risks, benefits, and discussion of treatment choices. No major barriers to understanding were identified. The patient expressed understanding and agreement with the above treatment plan. The patient was made aware they should contact our office by phone for worsening of their current condition, the appearance of new symptoms, or with any questions or concerns. Compliance is encouraged with any medications and follow up testing that is ordered. It is a privilege to be allowed the opportunity to participate in? your urological care.? Again, if you have any questions or concerns If you have any questions or concerns please do not hesitate to contact me. The office is [phone]. This note is constructed using voice recognition software. While every effort has been made to ensure accuracy site project manager errors may have been included. Yours sincerely, Amrita Mir, [employer] Coding Level of Care Code Est Pt Level 3 (48515) Complex EM visit Add On G2211 Diagnoses Elevated PSA R97.20 Enlarged prostate N40.0
--- OUTSIDE RECORDS SUMMARY | 2025-06-27 12:18 | XMS_ITS | Clinical Summary ---
Author Organization [facility] Address [address] [place] [phone] Phone Care Team Providers Care Ceiling Insulation Blower Name Role Phone Ramiro Ellis Primary Care [...] topic Medical Devices Not on file Insurance [employer] MEDEX SUPPLEMENT MEDICARE PART A & B [employer]) [employer] SUPPLE[employer] MEDICARE PART A & B [employer] SUPPLE[employer] MEDICARE PART A & B [employer]EX SUPPLEMENT MEDICARE PART A & B [employer] MEDEX SUPPLEMENT MEDICARE PART A & B [employer]) MEDEX SUPPLEMENT MEDICARE PART A & B [employer] MEDEX SUPPLEMENT MEDICARE PART A & B [employer] MEDEX SUPPLEMENT MEDICARE PART A & B [employer] MED[employer] SUPPLEMENT MEDICARE PART A & B Care Teams Ceiling Insulation Blower Relationship Specialty Start Date End Date Ramiro Ellis PA [address] [place] [address] PCP - General Physician 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 It is not the complete legal health record.[facility]
== END 2025-06-27 12:25 | disposition home or self-care (01) ==
LOC: HO.HUSH 11:45
PROVIDERS: PCP Physician Assistant; Visit Provider Nurse Practitioner Family
DX: R97.20 Elevated prostate specific antigen [PSA] (principal); N40.0 Benign prostatic hyperplasia without lower urinary tract symptoms; Z13.9 Encounter for screening, unspecified
CPT/HCPCS: 99213; G2211

== ENCOUNTER → 2025-06-27 11:44 | Outpatient (BNVA) | payer MEDICARE, SELFPAY | PROVIDERS: PCP Physician Assistant; Visit Provider Nurse Practitioner Family | DX: K40.90 Unilateral inguinal hernia, without obstruction or gangrene, not specified as recurrent (principal) | CPT/HCPCS: 81003; 99202; 99212 ==

== ENCOUNTER 2025-06-27 13:24 | Outpatient (AMB) | payer MEDICARE, SELFPAY ==
--- NOTE | 2025-06-27 13:26 | A.OFFVIS_ITS ---
Vital Signs 06/27/25 13:34 Height 5 ft 7 in Weight 163 lb BMI 25.5 BP 141/77 H Blood Pressure Location Rt brachial Position Sitting Pulse 57 Intake Visit Reasons: Unilateral inguinal hernia Intake Note: Patient referred by pcp Bryce Ellis PA-C for assessment of Unilateral inguinal hernia. Patient c/o: discomfort. Feels a little lump on lower abdomen. Noticed after heavy lifting and bumping area with wheel barrel handle. Abdomen CT: 03-25-2025 Turbine Inspector Required: No Accompanied by: Self / Same As Patient Allergies amoxicillin (AMOXICILLIN) Allergy (Severe, Verified 06/27/25 13:32) RASH zoster vaccine live (SHINGLES VACCINE) Allergy (Severe, Verified 06/27/25 13:32) SWELLING AND PAIN latex Allergy (Intermediate, Verified 06/27/25 13:32) Rash metoprolol Adverse Reaction (Severe, Verified 06/27/25 13:32) Nausea finasteride Adverse Reaction (Intermediate, Verified 06/27/25 13:32) tough swelling PEG 3350-KCl-Na Bicarb-NaCl Allergy (Unknown, Uncoded 06/27/25 13:32) Unknown pollen Allergy (Unknown, Uncoded 06/27/25 13:32) Itchy Eyes Medication List - Last Reconciled 06/27/25 by Akbar Pleitez MD albuterol sulfate 90 mcg/actuation 2 puffs inhalation Q6H PRN cetirizine (Zyrtec) 10 mg PO DAILY PRN 90 days dutasteride 0.5 mg PO DAILY 90 days fluticasone propionate 50 mcg/actuation (Flonase Allergy Relief) 1 spray intranasal DAILY losartan 50 mg PO DAILY 30 days montelukast 10 mg PO DAILY 30 days tamsulosin 0.4 mg PO DAILY 90 days HPI HPI Unilateral inguinal hernia: Details: 75-year-old male referred for an inguinal hernia on the right side. He said that he has had this for several months now. He thinks that this started when he was lifting a wheelbarrow he had his right groin on the handle He has noticed this reducible mass since then. He describes some discomfort but no significant pain. He denies GI complaints. [facility] Medical History (Updated 06/27/25 @ 13:54 by Akbar Pleitez MD) Reducible right inguinal hernia Chronic rhinitis Sinusitis Pulmonary nodules Essential hypertension Surgical History History of knee surgery History of hemorrhoidectomy Family History Father Prostate cancer Social History Housing: House Alcohol intake: current Alcohol intake frequency: holidays/special occasions only Patient Tobacco Use Status: Never used Tobacco e-Cigarette/Vaping Use: Never Used Second Hand Smoke Exposure: No service: No Current occupational status: retired Cognitive needs: No Hearing needs: No Vision needs: Yes (Glasses) Review of Systems Const Denies chills and Denies fever(s) Card Denies chest pain, Denies dyspnea and Denies dyspnea on exertion Resp Denies cough, Denies dyspnea and Denies dyspnea on exertion GI Denies hematochezia and Denies change in bowel habits Denies hematuria and Denies difficulty urinating Musc Denies back pain and Denies limited range of motion Neuro Denies focal weakness and Denies convulsions Psych Denies depression and Denies mood swings Physical Exam Vital Signs: Last Vital Signs Pulse 57 06/27/25 13:34 BP 141/77 H 06/27/25 13:34 BMI result Body Mass Index 25.5 Const General: comfortable and no acute distress Orientation/consciousness: patient oriented x3 Neck Neck: Yes no lymphadenopathy Resp Auscultation: clear to auscultation bilaterally Cardio Rhythm: regular rhythm GI Other: Reducible hernia on the right groin, non tender Palpation (GI): Soft to palpation, nontender and no guarding Neuro General: patient oriented x3 Results AMB Urinalysis, Automated UA Leukoctes 0 Leora/uL Last Edit by BEVERLEY Pepper on 06/27/25 11:59 UA Nitrite Negative Last Edit by BEVERLEY Pepper on 06/27/25 11:59 UA Urobilinogen 0.2 mg/dL Last Edit by BEVERLEY Pepper on 06/27/25 11:5 9 UA Protein 15 mg/dL Last Edit by BEVERLEY Pepper on 06/27/25 11:59 UA pH 6.0 Last Edit by BEVERLEY Pepper on 06/27/25 11:59 UA Blood 0 Colby/uL Last Edit by BEVERLEY Pepper on 06/27/25 11:59 UA Specific Hestand 1.015 Last Edit by BEVERLEY Pepper on 06/27/25 11: 59 UA Ketone Negative Last Edit by BEVERLEY Pepper on 06/27/25 11:59 UA Bilirubin 0 mg/dL Last Edit by BEVERLEY Pepper on 06/27/25 11:59 UA Glucose 0 mg/dL Last Edit by BEVERLEY Pepper on 06/27/25 11:59 Assessment & Plan Assessment & Plan (1) Reducible right inguinal hernia: Code(s): K40.90 - Unilateral inguinal hernia, without obstruction or gangrene, not specified as recurrent Category: Medical Plan Has a reducible right inguinal hernia as described above. I explained to him the technique of repair with mesh placement. I reviewed the risks including but not limited to bleeding, infections, recurrence, injury to bowel, vas deferens, or testicle, postop pain, as well as the benefits and alternatives. I also reviewed with him what to expect postoperatively. He is in relatively good health and he wants to proceed with repair. Coding Level of Care Code New Pt Level 3 (91392) Diagnoses Reducible right inguinal hernia K40.90
[2025-06-27 13:34] VITALS: BP 141/77; PULSE 57; BMI 25.5
== END 2025-06-27 13:52 | disposition home or self-care (01) ==
LOC: HO.HGS 13:25
PROVIDERS: PCP Physician Assistant; Visit Provider Surgery
DX: K40.90 Unilateral inguinal hernia, without obstruction or gangrene, not specified as recurrent (principal)
CPT/HCPCS: 99203

== ENCOUNTER 2025-07-23 12:50 | Outpatient (REF) | payer MEDICARE, SELFPAY ==
--- NOTE | 2025-07-23 13:00 | PFT_ITS ---
Flows: FEV1: 132 % of predicted at 3.67 L FVC: 128 % of predicted at 4.70 L FEV1/FVC: 78 % Bronchodilator response: Absent Volumes: Total lung capacity: 111 % of predicted at 7.14 L Residual volume: 97 % of predicted at 2.33 L Slow vital capacity: 122 % of predicted at 4.81 L Expiratory reserve volume: 98 % of predicted at 1.05 L Diffusion capacity: Normal Impression: No obstructive or restrictive ventilatory defect. No bronchodilator response. Normal pulmonary function test. MTDD
[2025-07-23 13:42] VITALS: PULSE 68; O2SAT 98
== END 2025-07-23 12:51 | disposition home or self-care (01) ==
LOC: HO.RESP 12:50
PROVIDERS: PCP Physician Assistant; Visit Provider Hospitalist
DX: J43.2 Centrilobular emphysema (principal)
CPT/HCPCS: 94010; 94640; 94727; 94729

== ENCOUNTER → 2025-07-23 13:00 | Outpatient (BNV) | payer MEDICARE, SELFPAY | PROVIDERS: PCP Physician Assistant; Visit Provider Internal Medicine Pulmonary Disease | DX: J43.2 Centrilobular emphysema (principal) | CPT/HCPCS: 94060; 94727; 94729 ==

== ENCOUNTER 2025-08-08 13:10 | Outpatient (AMB) | payer MEDICARE, SELFPAY ==
[2025-08-08 13:16] VITALS: BP 124/80; PULSE 75; O2SAT 97; BMI 26.9
--- NOTE | 2025-08-08 13:16 | A.OFFVIS_ITS ---
Vital Signs 08/08/25 13:16 Height 5 ft 6 in Weight 166 lb 7.184 oz BMI 26.9 BP 124/80 Blood Pressure Location Lt brachial Position Sitting Pulse 75 Pulse Source Pulse Oximeter Pulse Oximetry (%) 97 Oxygen Delivery Method Room Air Intake Visit Reasons: Emphysema Audio Narrator Required: No Accompanied by: Self / Same As Patient Allergies amoxicillin (AMOXICILLIN) Allergy (Severe, Verified 06/27/25 13:32) RASH latex Allergy (Intermediate, Verified 06/27/25 13:32) Rash pollen extracts Allergy (Intermediate, Verified 07/24/25 12:13) cough/post nasal drip zoster vaccine live (SHINGLES VACCINE) Allergy (Intermediate, Verified 07/24/25 12:13) localized swelling/pain-2nd dose metoprolol Adverse Reaction (Severe, Verified 07/24/25 12:13) severe tremors finasteride Adverse Reaction (Intermediate, Verified 07/24/25 12:13) mouth swelling/nausea PEG 3350-KCl-Na Bicarb-NaCl Allergy (Severe, Uncoded 07/24/25 12:13) Swelling HPI Comments Details: The patient is a 75-year-old gentleman presenting with a symptom of cough. The patient states that his cough since be productive in nature with yellowish phlegm. Moderate severity. He did see his primary care doctor he was given nasal spray in addition to some doxycycline although the patient did not take the antibiotics. He does take the nasal spray as needed. In addition to that he was given inhaler that he has not used. Ultimately underwent a CT scan of the chest in January 2025 which I personally reviewed. There was mentioned of emphysema. I had a hard time finding too much emphysema although very mild. The patient also had what appeared to be bronchogenic cysts bilaterally. It all appears to be benign. He does have multiple nodules subcentimeter in size that will need follow-up. 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 There was also a past history of smoking. Ultimately the patient was concerned about the finding of emphysema and he was then referred to Pulmonary. Overall he is doing good from a respiratory status except for the cough. On exam definitely has a component of postnasal drip with significant nasal congestion and what appears to be purulent secretions and emphysema of the posterior pharynx. His CT scan which was personally by me again demonstrated the cyst take areas and also the mild emphysema in addition to that has a dilated esophagus. On further questioning the patient does state that he has sometimes difficulty swallowing some sometimes heartburn. He does take [id number] medications. Therefore this point will go ahead and do PFTs. He will have another CAT scan in January of 2026. Can consider doing a barium swallow but for now will hold off the patient will start a reflux diet and will sleep elevated. 08/08/2025 The patient is here for a pulmonary follow up visit. He is having a worsening cough. Moerate in severity. Had to cancel his abdominal hernia surgery due to the cough. Feels that it is related to the change of seasons. We did review his PFTs that were completely normal. Likely that all the [employer] playing helped his respiratory capacity. We did review his CT chest with mild emphysema and pulmonary nodules. Does have an upper cough syndrome. [facility] Medical History (Updated 07/24/25 @ 12:09 by Elyse Cherry RN) Arthritis HTN (hypertension) BPH (benign prostatic hyperplasia) Palpitations Emphysema lung Reducible right inguinal hernia Chronic rhinitis Pulmonary nodules Essential hypertension Surgical History (Updated 07/24/25 @ 12:10 by Elyse Cherry RN) History of knee surgery History of hemorrhoidectomy Family History Father Prostate cancer Social History Housing: House Are you a primary personal care aide to a significant other at home: No Do you presently have visiting nurse or other home services: No Alcohol intake: current Alcohol intake frequency: holidays/special occasions only Patient Tobacco Use Status: Never used Tobacco e-Cigarette/Vaping Use: Never Used Second Hand Smoke Exposure: No service: No Current occupational status: retired Cognitive needs: No Hearing needs: No Vision needs: Yes (Glasses) Review of Systems Const Denies headache(s) Eyes Denies loss of vision ENT Denies vertigo, Denies dizziness, Denies headache(s) and Denies sore throat Card Denies chest pain, Denies leg edema and Denies lightheadedness Resp Reports change in phlegm color, Reports cough, Denies hemoptysis, Reports excessive phlegm production and Denies wheezing GI Denies abdominal pain, Denies melena, Denies constipation, Denies diarrhea and Denies vomiting Denies dysuria, Denies urinary frequency and Denies urinary urgency Musc Denies arthralgias, Denies joint swelling, Denies numbness and Denies tingling Neuro Denies Abnormal speech present, Denies behavioral changes, Denies vertigo, Hayes es dizziness, Denies headache(s), Denies loss of vision, Denies memory loss, Denies numbness and Denies tingling Psych Denies anxiety, Denies behavioral changes, Denies depression, Denies memory loss and Denies panic attacks Vincenzo/Lymph Denies easy bleeding and Denies easy bruising Aller/Immun Denies wheezing Physical Exam Vital Signs: Last Vital Signs Pulse 75 08/08/25 13:16 BP 124/80 08/08/25 13:16 Pulse Ox 97 08/08/25 13:16 Oxygen Delivery Method Room Air 08/08/25 13:16 BMI result Body Mass Index 26.9 Const General: comfortable HEENT Throat: Yes posterior oropharynx abnormal, Yes postnasal drainage and Yes cobblestoning Eyes General: appearance normal, both eyes and all related structures Neck Neck: Yes supple Chest Chest palpation & inspection: normal inspection of the chest Resp Effort & Inspection: normal respiratory effort Auscultation: clear to auscultation bilaterally Cardio Rate: regular rate Heart sounds: S1 normal heart sound present and S2 normal heart sound present GI Palpation (GI): Soft to palpation Skin General skin exam: no rashes or lesions noted Neuro Speech: No Abnormal speech present Extrem General: Yes no clubbing, cyanosis or edema Assessment & Plan Assessment & Plan (1) Emphysema lung: Comment: very mild, some areas likely pneumonic cysts Code(s): J43.9 - Emphysema, unspecified Category: Medical Qualifiers: Emphysema type: centrilobular Qualified Code(s): J43.2 - Centrilobular emphysema (2) Pulmonary nodules: Code(s): R91.8 - Other nonspecific abnormal finding of lung field Category: Medical (3) Sinusitis: Code(s): J32.9 - Chronic sinusitis, unspecified Category: Medical Qualifiers: Chronicity: subacute Sinusitis location: unspecified location Qualified Code(s): J01.90 - Acute sinusitis, unspecified (4) Chronic rhinitis: Comment: takes montelukast & cetirizine Code(s): J31.0 - Chronic rhinitis Category: Medical Plan start nasal spray AM consider sinus rinse with distilled saline Repeat CT chest 01/2026 start Symbicort sleep elevated Will call if cough is no better in 2 weeks. If better he may proceed with surgery F/U February 2026 Medications: New budesonide-formoterol 160-4.5 mcg/actuation 2 puffs inhalation BID 10.2 grams 11RF 30 days J44.89 - Other specified chronic obstructive pulmonary disease mometasone 50 mcg/actuation (Nasonex 24hr Allergy) administer into each nostril 2 sprays intranasal DAILY 17 grams 11RF 30 days Coding Level of Care Code Est Pt Level 4 (40960) Complex EM visit Add On G2211 Diagnoses Centrilobular emphysema J43.2 Emphysema type: centrilobular Pulmonary nodules R91.8 Subacute sinusitis, unspecified location J01.90 Chronicity: subacute Sinusitis location: unspecified location Chronic rhinitis J31.0 Time Spent (min) 18
--- OUTSIDE RECORDS SUMMARY | 2025-08-08 15:12 | XMS_ITS | Clinical Summary ---
Author Organization [facility] Address [address] [place] [id number] Phone Care Team Providers Care Dining Host Name Role Phone Ramiro Ellis Primary Care [...] (2 of 2 - PCV) 01/10/2020 01/10/2019 INFLUENZA VACCINE (#1) 2025 , 09/30/2020, 09/11/2019, Additional history exists COVID-19 VACCINE ( - 2024- season) 2025 02/17/2022, 10/24/2021, 03/04/2021, Additional history exists RSV [...] topic Medical Devices Not on file Insurance [employer] MEDEX SUPPLEMENT MEDICARE PART A & B [employer] MEDEX SUPPLEMENT MEDICARE PART A & B [employer] MEDEX SUPPLEMENT MEDICARE PART A & B [employer] MEDEX SUPPLEMENT MEDICARE PART A & [place] [address] [place] [address] CROSS MEDEX SUPPLEMENT MEDICARE PART A & B [employer] CROSS MEDEX SUPPLEMENT MEDICARE PART A & B [employer] CROSS MEDEX SUPPLEMENT MEDICARE PART A & B [employer]EX SUPPLEMENT MEDICARE PART A & B [employer]OSS [employer]EX SUPPLEMENT MEDICARE PART A & B Care Teams Dining Host Relationship Specialty Start Date End Date Ramiro Ellis PA [address] [place] [id number] PCP - General Physician Systems Integrator 03/05/24 Additional Source Comments The information contained in this document represents components of the legal health record. It is not the complete legal health record.[facility]
== END 2025-08-08 14:10 | disposition home or self-care (01) ==
LOC: HO.HPS 13:11
PROVIDERS: PCP Physician Assistant; Visit Provider Hospitalist
DX: J43.2 Centrilobular emphysema (principal); R91.8 Other nonspecific abnormal finding of lung field; J01.90 Acute sinusitis, unspecified; J31.0 Chronic rhinitis
CPT/HCPCS: 99214; G2211

== ENCOUNTER → 2025-08-08 13:10 | Outpatient (BNVA) | payer MEDICARE, SELFPAY | PROVIDERS: PCP Physician Assistant; Visit Provider Hospitalist | DX: J43.2 Centrilobular emphysema (principal); J01.90 Acute sinusitis, unspecified; J31.0 Chronic rhinitis; R91.8 Other nonspecific abnormal finding of lung field | CPT/HCPCS: 99212 ==

== ENCOUNTER 2025-08-26 08:00 | Outpatient (REF) | payer MEDICARE, SELFPAY ==
--- OUTSIDE RECORDS SUMMARY | 2025-08-26 08:04 | XMS_ITS | Clinical Summary ---
Author Organization [facility] Address [address] [place] [phone] Phone Care Team Providers Care Ekg Manager Name Role Phone Ramiro Ellis Primary Care [...] topic Medical Devices Not on file Insurance [employer] MEDEX SUPPLEMENT MEDICARE PART A & B [employer] MEDEX SUPPLEMENT MEDICARE PART A & B [employer] MEDEX SUPPLEMENT MEDICARE PART A & B [employer] MEDEX SUPPLEMENT MEDICARE PART A & [place] [address] [address] [address] CROSS MEDEX SUPPLEMENT MEDICARE PART A & B [employer] CROSS MEDEX SUPPLEMENT MEDICARE PART A & B [employer]OSS MEDEX SUPPLEMENT MEDICARE PART A & B [employer]OSS MEDEX SUPPLEMENT MEDICARE PART A & B [employer] SUPPLEMENT MEDICARE PART A & B Care Teams Ekg Manager Relationship Specialty Start Date End Date Ramiro Ellis PA [address] [place] [id number] PCP - General Physician Baseball Sewer Hand 03/05/24 Additional Source Comments The information contained in this document represents components of the legal health record. It is not the complete legal health record.[facility]
[2025-08-26 08:23] LABS: Hematocrit 43.3 % (42.0-52.0); Hemoglobin 14.6 g/dl (14.0-18.0); Mean Corpuscular HGB Conc 33.7 g/dl (31.0-36.0); Mean Corpuscular Hemoglobin 29.7 pg (27.0-33.0); Mean Corpuscular Volume 88.2 fL (80.0-98.0); NRBC Abs Auto 0.000 X10*3/uL (0.0-0.012); NRBC Pct Auto 0.0 /100WBC (0.0-0.2); Platelet Count 249 X10*3/uL (160-400); Red Blood Count 4.91 X10*6/uL (4.60-5.80); White Blood Count 7.1 X10*3/uL (4.8-10.8)
[2025-08-26 08:53] LABS: Alanine Aminotransferase 20 U/L (0-40); Albumin Level 4.4 g/dL (3.5-5.0); Alkaline Phosphatase 64 U/L (39-117); Anion Gap 8 (12-20); Aspartate Amino Transferase 22 U/L (5-37); Blood Urea Nitrogen 19 mg/dL (9-16); Calcium 9.1 mg/dL (8.4-10.2); Carbon Dioxide 30 mmol/L (22-29); Chloride 107 mmol/L (96-108); Estimated Glomerular Filt Rate > 60; Potassium 4.3 mmol/L (3.3-5.1); Sodium 141 mmol/L (135-145); Total Protein 7.2 g/dL (6.5-8.0)
== END 2025-08-26 08:01 | disposition home or self-care (01) ==
LOC: HO.LAB 08:00
PROVIDERS: PCP Physician Assistant; Visit Provider Physician Assistant
DX: I10 Essential (primary) hypertension (principal)
CPT/HCPCS: 36415; 80053; 85027

== ENCOUNTER 2025-08-29 10:51 | Outpatient (AMB) | payer MEDICARE, SELFPAY ==
--- NOTE | 2025-08-29 10:58 | A.OFFPC_ITS ---
Vital Signs 08/29/25 11:02 08/29/25 11:43 Height 5 ft 6 in Weight 168 lb BMI 27.1 BP 150/80 H 130/80 Blood Pressure Location Lt brachial Position Sitting Pulse 62 Pulse Source Pulse Oximeter Temp 97.3 F Temp Source Temporal Artery Scan Pulse Oximetry (%) 98 Oxygen Delivery Method Room Air Intake Visit Reasons: f/u HTN/ emphysema Intake Note: Patient is here to follow up on HTN, Emphysema. Cartographic Aide Required: No Checking Department Supervisor: Not Required per policy Accompanied by: Self / Same As Patient Allergies amoxicillin (AMOXICILLIN) Allergy (Severe, Verified 08/29/25 11:27) RASH latex Allergy (Intermediate, Verified 08/29/25 11:27) Rash pollen extracts Allergy (Intermediate, Verified 08/29/25 11:27) cough/post nasal drip zoster vaccine live (SHINGLES VACCINE) Allergy (Intermediate, Verified 08/29/25 11:27) localized swelling/pain-2nd dose metoprolol Adverse Reaction (Severe, Verified 08/29/25 11:27) severe tremors finasteride Adverse Reaction (Intermediate, Verified 08/29/25 11:27) mouth swelling/nausea PEG 3350-KCl-Na Bicarb-NaCl Allergy (Severe, Uncoded 08/29/25 11:27) Swelling Medication List - Last Reconciled 08/29/25 by Ramiro Ellis PA-C albuterol sulfate 90 mcg/actuation 2 puffs inhalation Q6H PRN Bifidobacterium infantis (Align (B.infantis)) 10.5 mg PO QAM budesonide-formoterol 160-4.5 mcg/actuation 2 puffs inhalation BID 30 days cetirizine (Zyrtec) 10 mg PO BEDTIME dutasteride 0.5 mg PO QAM fluticasone propionate 50 mcg/actuation (Flonase Allergy Relief) 2 sprays intranasal DAILY 30 days losartan 50 mg PO QAM mometasone 50 mcg/actuation (Nasonex 24hr Allergy) 2 sprays intranasal DAILY 30 days montelukast 10 mg PO QAM tamsulosin 0.4 mg PO QAM Tobacco use date assessed: 08/29/25 Fall risk assessment: No Falls in past year Last assessed Fall Risk: 08/29/25 Dental Screening Dental Screen Date: 04/29/25 HPI f/u HTN/ emphysema HPI Details Patient is a 75 year male here today for follow-up visit Patient has a past medical history significant for essential hypertension, emphysema and elevated PSA. Emphysema/ Asthma: Recent CT chest showing evidence of emphysema > history included a 10-12 month history of a cough presenting after having a COVID infection February 2024. 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 He has tried [id number] cough cold medications though have not been effective. Patient has been started on montelukast and reports he has been about 80% better. He has followed up with pulmonology and started him on a maintenance inhaler though still has a cough. He is interested in trying a cough suppressant medication to help him with reducing his cough. Inguinal hernia: recently noted to have right inguinal hernia and has upcoming appointment with general surgeon about surgical fix. His surgery has been postponed due to his continued cough. .. BPH-> continues to have elevated PSA. Does have a brother with prostate cancer. He has establish with [facility] and his finasteride was switch to dutasteride and feels it is working better for him. .. Hypertension: blood pressure stable today in office. Patient continues on losartan with good effect on his blood pressure. Laboratory Tests 03/19/25 06/21/25 08/26/25 10:13 08:46 08:14 RBC 4.91 Prostate Specific Ag 7.89 H 4.51 H PFSH Medical History Arthritis HTN (hypertension) BPH (benign prostatic hyperplasia) Palpitations Emphysema lung Reducible right inguinal hernia Chronic rhinitis Pulmonary nodules Essential hypertension Surgical History History of knee surgery History of hemorrhoidectomy Family History Father Prostate cancer Social History Housing: House Are you a primary group care worker to a significant other at home: No Do you presently have visiting nurse or other home services: No Alcohol intake: current Alcohol intake frequency: holidays/special occasions only Patient Tobacco Use Status: Never used Tobacco e-Cigarette/Vaping Use: Never Used Second Hand Smoke Exposure: No service: No Current occupational status: retired Cognitive needs: No Hearing needs: No Vision needs: Yes (Glasses) Questionnaire Thrive Questionnaire Date Thrive assessed: 04/24/25 I am a: Patient What is your living situation today?: I have a steady place to live Within the past 12 months, did the food you bought not last and you didn't have the money to get more?: Never true Within the past 12 months, did you worry whether your food would run out before you got money to buy more?: Never true Do you have trouble paying for medicines?: No Do you have trouble getting transportation to medical appointments?: No Do you have trouble paying your heating and electricity bill?: No Do you have trouble taking care of your child, family member or friend?: No Do you have trouble with day-to-day activities such as bathing, preparing meals, shopping, managing finances, etc.?: No Are you currently unemployed and looking for a job?: No Are you interested in more education?: No Please select the resources that you would like help with: None Currently or been in a relationship where the following occur: I choose not to answer THRIVE Score: 0 AMBERLY-7 AMB Questionnaire AMBERLY-7 Date AMBERLY - 7 assessed: 04/29/25 Source: Developed by Drs. Bryce Burton, Lynette Dietz, Darshan Porter and colleagues, with an educational sandee from [employer]. Review of Systems Const Denies headache(s) Eyes Denies loss of vision ENT Denies vertigo, Denies dizziness, Denies headache(s) and Denies sore throat Card Denies chest pain, Denies leg edema and Denies lightheadedness Resp Reports cough, Denies hemoptysis and Denies wheezing GI Denies abdominal pain, Denies melena, Denies constipation, Denies diarrhea and Denies vomiting Denies dysuria, Denies urinary frequency and Denies urinary urgency Musc Denies arthralgias, Denies joint swelling, Denies numbness and Denies tingling Neuro Denies Abnormal speech present, Denies behavioral changes, Denies vertigo, Denies dizziness, Denies headache(s), Denies loss of vision, Denies memory loss, Denies numbness and Denies tingling Psych Denies anxiety, Denies behavioral changes, Denies depression, Denies memory loss and Denies panic attacks Vincenzo/Lymph Denies easy bleeding and Denies easy bruising Aller/Immun Denies wheezing Physical exam (Primary Care) Vital Signs: Last Vital Signs Temp 97.3 F 08/29/25 11:02 Pulse 62 08/29/25 11:02 BP 130/80 08/29/25 11:43 Pulse Ox 98 08/29/25 11:02 Oxygen Delivery Method Room Air 08/29/25 11:02 BMI result Body Mass Index 27.1 Tobacco/Smoking Status: Tobacco use Status Tobacco use date assessed 08/29/25 08/29/25 11:07 Patient Tobacco Use Status Never used Tobacco 08/29/25 10:59 e-Cigarette/Vaping Use Never Used 08/29/25 10:59 Thrive Assessment: Date of Thrive Assessment Date Thrive assessed 04/24/25 08/29/25 10:59 Currently or been in a relationship where the following occur: I choose not to answer Const General: healthy appearing, no acute distress, alert and awake Nutritional Appearance: well nourished Orientation/consciousness: oriented to person, oriented to place and oriented to time HENMT Ears: TM's normal bilaterally General nose exam: Normal nasal mucous membranes and turbinates present Eyes Conjunctivae: conjunctivae normal Sclerae: sclerae normal Pupils: Equal, round and reactive pupils present Neck Neck: Yes no lymphadenopathy and Yes no JVD Thyroid: Thyroid normal Carotids: no bruits Resp Effort & Inspection: normal respiratory effort and not tachypneic Auscultation: no crackles, no rales, no rhonchi and no wheezes Cardio Rate: regular rate Rhythm: regular rhythm Heart sounds: no murmurs and normal S1 and S2 GI Palpation (GI): Soft to palpation, nontender, no hepatomegaly and no splenomegaly Auscultation: normal bowel sounds Skin General skin exam: no rashes or lesions noted and dry skin Neuro General: oriented to person, oriented to place and oriented to time Cranial nerves: Yes Equal, round and reactive pupils present Speech: No Abnormal speech present Gait exam (Neuro): Normal gait present Motor exam (neuro): no tremor noted Extrem Right upper extremity: full ROM Left upper extremity: full ROM Right lower extremity: full ROM; no edema Left lower extremity: full ROM; no edema Psych Mental Status: mental status grossly normal Speech and movement: Normal speech and movement present Affect: normal affect Attitude: cooperative Thought process: Normal thought process present Coding Level of Care Code Est Pt Level 4 (90095) Diagnoses Essential hypertension I10 Right inguinal hernia K40.90 Elevated PSA R97.20 Emphysema lung J43.9 Assessment & Plan Assessment & Plan (1) Essential hypertension: Code(s): I10 - Essential (primary) hypertension Category: Medical Plan: Patient's blood pressure acceptable today in office. Will continue her current dose losartan with goal blood pressure to remain below 140/90 (2) Right inguinal hernia: Code(s): K40.90 - Unilateral inguinal hernia, without obstruction or gangrene, not specified as recurrent Category: Medical Plan: The hernia surgery is postponed, with a recommendation to monitor symptoms and consider surgery within six months unless complications arise (3) Elevated PSA: Code(s): R97.20 - Elevated prostate specific antigen [PSA] Category: Medical Plan: Continue Urology follow-up. Continues on tamsulosin and dutasteride. He does have a family history of prostate cancer PSA recently has 7.8 from 3.7. (4) Emphysema lung: Comment: very mild, some areas likely pneumonic cysts Code(s): J43.9 - Emphysema, unspecified Category: Medical Plan: The plan for asthma management includes continued use of the maintenance inhaler and nasal spray, with consideration for further evaluation if symptoms persist. He will trial Tessalon Perles for his cough to see if there is any improvement Orders: Orders Microalbumin, Random (w Creat) Today I10 - Essential (primary) hypertension Complete Blood Count no Diff Today I10 - Essential (primary) hypertension Comprehensive [place]. Panel Fast Today I10 - Essential (primary) hypertension Medications: New benzonatate 200 mg PO TID 15 caps 0RF 5 days R05.3 - Chronic cough, R05.9 - Cough, unspecified
[2025-08-29 11:02] VITALS: BP 150/80; PULSE 62; TEMP 36.3; O2SAT 98; BMI 27.1
[2025-08-29 11:43] VITALS: BP 130/80
== END 2025-08-29 11:59 | disposition home or self-care (01) ==
LOC: HO.HMCH 10:52
PROVIDERS: PCP Physician Assistant; Visit Provider Physician Assistant
DX: I10 Essential (primary) hypertension (principal); K40.90 Unilateral inguinal hernia, without obstruction or gangrene, not specified as recurrent; R97.20 Elevated prostate specific antigen [PSA]; J43.9 Emphysema, unspecified

== ENCOUNTER → 2025-08-29 10:51 | Outpatient (BNVA) | payer MEDICARE, SELFPAY | PROVIDERS: PCP Physician Assistant; Visit Provider Physician Assistant | DX: I10 Essential (primary) hypertension (principal); J43.9 Emphysema, unspecified; R97.20 Elevated prostate specific antigen [PSA]; K40.90 Unilateral inguinal hernia, without obstruction or gangrene, not specified as recurrent; N40.0 Benign prostatic hyperplasia without lower urinary tract symptoms; R05.3 Chronic cough | CPT/HCPCS: 99212 ==

== ENCOUNTER 2025-10-16 10:15 | Outpatient (REF) | payer MEDICARE, SELFPAY ==
[2025-10-16 11:38] LABS: PSA,Total (Free>4and<10) 3.31 ng/mL (0.00-4.00)
--- OUTSIDE RECORDS SUMMARY | 2025-10-16 12:02 | XMS_ITS | Clinical Summary ---
Author Organization [facility] Address [address] [place] [id number] Phone Care Team Providers Care Gold Nib Grinder Name Role Phone Ramiro Ellis Primary Care [...] topic Medical Devices Not on file Insurance [employer] SUPPLEMENT MEDICARE PART A & B [employer] SUPPLEMENT MEDICARE PART A & B [employer] SUPPLEMENT MEDICARE PART A & B [employer] MED[employer] SUPPLEMENT MEDICARE PART A & [place] [address] [place] [address] CROSS MEDEX SUPPLEMENT MEDICARE PART A & B [employer] CROSS MEDEX SUPPLEMENT MEDICARE PART A & B [employer] CROSS MEDEX SUPPLEMENT MEDICARE PART A & B [employer] CROSS [employer]EX SUPPLEMENT MEDICARE PART A & B [employer] CROSS [employer]EX SUPPLEMENT MEDICARE PART A & B Care Teams Gold Nib Grinder Relationship Specialty Start Date End Date Ramiro Ellis PA [address] [place] [id number] PCP - General Physician Back End Web Developer 03/05/24 Additional Source Comments The information contained in this document represents components of the legal health record. It is not the complete legal health record.[facility]
== END 2025-10-16 10:16 | disposition home or self-care (01) ==
LOC: HO.LAB 10:15
PROVIDERS: PCP Physician Assistant; Visit Provider Nurse Practitioner Family
DX: Z12.5 Encounter for screening for malignant neoplasm of prostate (principal); N40.0 Benign prostatic hyperplasia without lower urinary tract symptoms; R97.20 Elevated prostate specific antigen [PSA]
CPT/HCPCS: 36415; 84153

== ENCOUNTER 2025-10-28 11:42 | Outpatient (AMB) | payer MEDICARE, SELFPAY ==
--- NOTE | 2025-10-28 11:43 | MHC.OFFVIS ---
Intake Visit Reasons: 4m/PSA/UA/ SET Intake Note: Patient is present for 4 mo follow up Urology Medication:TAMSULOSIN,DUTASTERIDE Antibiotic Allergy:AMOXICILLIN Blood Thinner:NONE Labs done 10/16/25: total PSA 3.31 Human Services Worker Required: No Accompanied by: Self / Same As Patient Allergies amoxicillin (AMOXICILLIN) Allergy (Severe, Verified 10/28/25 15:02) RASH latex Allergy (Intermediate, Verified 10/28/25 15:02) Rash pollen extracts Allergy (Intermediate, Verified 10/28/25 15:02) cough/post nasal drip zoster vaccine live (SHINGLES VACCINE) Allergy (Intermediate, Verified 10/28/25 15:02) localized swelling/pain-2nd dose metoprolol Adverse Reaction (Severe, Verified 10/28/25 15:02) severe tremors finasteride Adverse Reaction (Intermediate, Verified 10/28/25 15:02) mouth swelling/nausea PEG 3350-KCl-Na Bicarb-NaCl Allergy (Severe, Uncoded 10/28/25 15:02) Swelling Medication List - Last Reconciled 10/28/25 by ELHAM Ascencio- albuterol sulfate 90 mcg/actuation 2 puffs inhalation Q6H PRN benzonatate 200 mg PO TID 5 days Bifidobacterium infantis (Align (B.infantis)) 10.5 mg PO QAM budesonide-formoterol 160-4.5 mcg/actuation 2 puffs inhalation BID 30 days cetirizine (Zyrtec) 10 mg PO BEDTIME dutasteride 0.5 mg PO QAM fluticasone propionate 50 mcg/actuation (Flonase Allergy Relief) 2 sprays intranasal DAILY 30 days losartan 50 mg PO DAILY mometasone 50 mcg/actuation (Nasonex 24hr Allergy) 2 sprays intranasal DAILY 30 days montelukast 10 mg PO QAM tamsulosin 0.4 mg PO QAM HPI Comments Details: Oren is a very pleasant 75-year-old male patient of Dr. Ellis. He has a PMH of hypertension and hemorrhoids. He presents to the office today for follow-up of his elevated PSA and lower urinary tract symptoms. In discussion with the patient today reports to be doing and feeling well. He reports compliance with dutasteride as prescribed. Previously patient had been on finasteride however felt this caused tongue swelling as well as nausea and therefore was switched to dutasteride. Recent PSA results with the patient today as noted and trended below. Previous workup has included a retroperitoneal ultrasound 04/13 noting bilateral kidneys with no hydronephrosis or renal calculi. Simple 0.7 cm exophytic cyst is seen on the left kidney that requires no imaging follow-up per radiology report. The bladder is well distended and normal. Bladder ureteral jets are demonstrated. Pre void bladder volume is approximately 360 mL. Postvoid bladder volume is approximately 270 mL. The prostate is markedly enlarged with a volume of 135 mL. This impinges on the bladder base. PSAs are as follows: PSAs: 12/09 3.0, 03/13 5.8, 03/14 9.1, 04/13 6.7 % free PSA 33%., 09/13 3.8, 03/15 7.9, 07/15 4.5, 10/15 3.3 We discuss decrease in PSA. We discussed further treatment options and risks and benefits of these treatment options. He otherwise denies urinary urgency, urinary frequency, incontinence, hematuria, dysuria, foul smelling urine, flank pain, fever, and or chills. Discussed potential causes for/ of elevated PSA. He denies any known family history of prostate cancer. He discusses his upcoming surgical procedure with Dr. Pleitez for an inguinal hernia repair however is thinking of rescheduling as he lives alone and is worried with the potential need to snow blow and or shovel in the winter months. He also reports to be following up with pulmonology for chronic rhinitis and cough he continues to experience. In office urinalysis results reviewed with the patient today. He otherwise offers no other issues or concerns. [facility] Medical History Arthritis HTN (hypertension) BPH (benign prostatic hyperplasia) Palpitations Emphysema lung Reducible right inguinal hernia Chronic rhinitis Pulmonary nodules Essential hypertension Surgical History History of knee surgery History of hemorrhoidectomy Family History Father Prostate cancer Social History Housing: House Are you a primary critical care specialist to a significant other at home: No Do you presently have visiting nurse or other home services: No Alcohol intake: current Alcohol intake frequency: holidays/special occasions only Patient Tobacco Use Status: Never used Tobacco e-Cigarette/Vaping Use: Never Used Second Hand Smoke Exposure: No service: No Current occupational status: retired Cognitive needs: No Hearing needs: No Vision needs: Yes (Glasses) Review of Systems Const All systems reviewed & are unremarkable except as noted in HPI and below Physical Exam Const General: cooperative, healthy appearing, comfortable, no acute distress, well developed, alert and awake Orientation/consciousness: patient oriented x3 Limitations: no limitations HEENT Head: Yes normal to inspection, Yes normocephalic and Yes atraumatic Ears: hearing grossly normal bilaterally Eyes General: appearance normal, both eyes and all related structures Neck Neck: Yes normal visual inspection and Yes trachea midline Chest Chest palpation & inspection: normal inspection of the chest Resp Effort & Inspection: normal respiratory effort and able to speak in complete sentences Cardio Rate: regular rate GI Inspection: Yes normal to inspection General: Yes no CVA tenderness Back/Spine/Pelvis Back: no CVA tenderness Skin General skin exam: no rashes or lesions noted Neuro General: patient oriented x3 Extrem General: Yes normal to inspection Psych Appearance: grossly normal and well kempt Mental Status: mental status grossly normal Speech and movement: Normal speech and movement present and Clear speech present Affect: normal affect Attitude: cooperative Thought process: Normal thought process present Thought content: Normal thought content present Insight: Fair insight present (Psych) Judgement: Fair judgement present (Psych) Results AMB Urinalysis, Automated UA Leukoctes 0 Leora/uL Last Edit by Mag Lloyd [facility] on 10/28/25 11:51 UA Nitrite Negative Last Edit by Mag Lloyd [facility] on 10/28/25 11:51 UA Urobilinogen 0.2 mg/dL Last Edit by Mag Lloyd [facility] on 10/28/25 11:51 UA Protein 0 mg/dL Last Edit by Mag Lloyd [facility] on 10/28/25 11:51 UA pH 7.0 Last Edit by Mag Lloyd [facility] on 10/28/25 11:51 UA Blood 0 Colby/uL Last Edit by Mag Lloyd [facility] on 10/28/25 11:51 UA Specific [place] 1.005 Last Edit by Mag Gabino [facility] on 10/28/25 11:51 UA Ketone Negative Last Edit by Mag Gabino [facility] on 10/28/25 11:51 UA Bilirubin 0 mg/dL Last Edit by Mag Lloyd [facility] on 10/28/25 11:51 UA Glucose 0 mg/dL Last Edit by Magadelso Lloyd [facility] on 10/28/25 11:51 Results Reviewed Results Reviewed: Laboratory Last Values Urine pH (Auto) 7.0 10/28/25 11:47 Specific [place] (Auto) 1.005 10/28/25 11:47 Urine Protein (Auto) 0 mg/dL 10/28/25 11:47 Glucose (UA)(Auto) 0 mg/dL 10/28/25 11:47 Urine Ketones (Auto) Negative 10/28/25 11:47 Urine Blood (Auto) 0 Colby/uL 10/28/25 11:47 Urine Nitrite (Auto) Negative 10/28/25 11:47 Urine Bilirubin (Auto) 0 mg/dL 10/28/25 11:47 Urine Urobilinogen (Auto) 0.2 mg/dL 10/28/25 11:47 Leukocyte Esterase (Auto) 0 Leora/uL 10/28/25 11:47 Assessment & Plan Assessment & Plan (1) Elevated PSA: Code(s): R97.20 - Elevated prostate specific antigen [PSA] Category: Medical (2) Enlarged prostate: Code(s): N40.0 - Benign prostatic hyperplasia without lower urinary tract symptoms Category: Medical (3) Weak urinary stream: Code(s): R39.12 - Poor urinary stream Category: Medical (4) Renal cyst: Code(s): N28.1 - Cyst of kidney, acquired Category: Medical (5) Incomplete bladder emptying: Code(s): R33.9 - Retention of urine, unspecified Category: Medical Plan In office urinalysis results reviewed with the patient today; as noted above. Recent PSA results reviewed with the patient today; as noted above. He currently denies any bothersome urinary issues or concerns. He reports be happy with current voiding parameters. We did discussed significant decrease in PSA however we also discussed potential causes of elevated PSA as well as further treatment options and risks and benefits of these treatment options. Will continue with surveillance monitoring. Continue dutasteride as discussed and prescribed. Will obtain PSA in 4-6 months. Follow-up in 4-6 months with PSA; or sooner with any issues, concerns, and or questions. Orders: Orders Prostate Specific Antigen 4 Months N40.0 - Benign prostatic hyperplasia without lower urinary tract symptoms, R97.20 - Elevated prostate specific antigen [PSA] AMB Urinalysis Automated Today N13.8 - Other obstructive and reflux uropathy, N40.1 - Benign prostatic hyperplasia with lower urinary tract symptoms Patient Instructions: The patient had an opportunity to ask questions regarding the treatment plan. All questions were answered. Physical exam, labs, and imaging were discussed and reviewed in detail. As well as risks, benefits, and discussion of treatment choices. No major barriers to understanding were identified. The patient expressed understanding and agreement with the above treatment plan. The patient was made aware they should contact our office by phone for worsening of their current condition, the appearance of new symptoms, or with any questions or concerns. Compliance is encouraged with any medications and follow up testing that is ordered. It is a privilege to be allowed the opportunity to participate in? your urological care.? Again, if you have any questions or concerns If you have any questions or concerns please do not hesitate to contact me. The office is [phone]. This note is constructed using voice recognition software. While every effort has been made to ensure accuracy surface grinder errors may have been included. Yours sincerely, DANAE Ascencio Coding Level of Care Code Est Pt Level 3 (77106) Complex visit Add On G2211 Diagnoses Elevated PSA R97.20 Enlarged prostate N40.0 Weak urinary stream R39.12 Renal cyst N28.1 Incomplete bladder emptying R33.9
== END 2025-10-28 12:22 | disposition home or self-care (01) ==
LOC: HO.HUSH 11:43
PROVIDERS: PCP Physician Assistant; Visit Provider Nurse Practitioner Family
DX: R97.20 Elevated prostate specific antigen [PSA] (principal); N40.0 Benign prostatic hyperplasia without lower urinary tract symptoms; R39.12 Poor urinary stream; N28.1 Cyst of kidney, acquired; R33.9 Retention of urine, unspecified; N40.1 Benign prostatic hyperplasia with lower urinary tract symptoms; N13.8 Other obstructive and reflux uropathy
CPT/HCPCS: 99213; G2211

== ENCOUNTER → 2025-10-28 11:42 | Outpatient (BNVA) | payer MEDICARE, SELFPAY | PROVIDERS: PCP Physician Assistant; Visit Provider Nurse Practitioner Family | DX: N40.0 Benign prostatic hyperplasia without lower urinary tract symptoms (principal); N28.1 Cyst of kidney, acquired; R39.12 Poor urinary stream; R97.20 Elevated prostate specific antigen [PSA]; R33.9 Retention of urine, unspecified | CPT/HCPCS: 81003; 99212 ==